=== PATIENT | female | born 1945 | race American Indian/Alaskan Native ===

== ENCOUNTER 2021-05-07 12:33 | Inpatient (IN) | payer MEDICARE ==
--- NOTE | 2021-05-07 15:19 | Emergency Department Report ---
ED Fall HPI - General Chief Complaint: Hyperglycemia Stated Complaint: FALL, HIGH BLOOD SUGAR Time Seen by Provider: 05/07/21 14:28 Source: patient, EMS Mode of arrival: Stretcher - History of Present Illness Initial Comments: 76-year-old female, history of diabetes, colon cancer, chronic kidney disease, presents to ED following fall at home. Patient states that she has a stool that sits on top of her toilet. Patient states she went to use the bathroom. While sitting on the stool, it fell off of the toilet, and patient reports she also fell, hitting her head and her right arm. She denies any LOC. EMS was called for the fall and found that patient was hyperglycemic when they did Accu-Chek. Patient reports chronic knee pain. States she ambulates with a walker. MD Complaint: fall -: This afternoon Fall From: other (Sitting) Place Fall Occurred: home Loss of Consciousness: none Symptoms Prior to Fall: none Location: head Location - Extremities: Left: Arm Severity: mild Associated Symptoms: denies: chest paint, shortness of breath - Related Data Allergies Allergy/AdvReac Type Severity Reaction Status Date / Time insulin lispro Allergy Unknown Verified 05/07/21 12:39 [From Humalog U-100 Insulin] ED Review of Systems ROS: Stated complaint: HIGH BLOOD SUGAR Other details as noted in HPI Comment: All other systems reviewed and negative Constitutional: denies: fever Respiratory: denies: shortness of breath Cardiovascular: denies: chest pain Gastrointestinal: denies: nausea, vomiting Neurological: headache ED Past Medical Hx - Past Medical History Previous Medical History?: Yes Hx Hypertension: Yes Hx Diabetes: Yes Hx Arthritis: Yes Hx Asthma: Yes Additional medical history: Colon CA ED Physical Exam - General Limitations: No Limitations General appearance: alert, in no apparent distress - Head Head exam: Present: atraumatic, normocephalic - Eye Eye exam: Present: normal appearance, EOMI - ENT ENT exam: Present: mucous membranes moist - Neck Neck exam: Present: normal inspection - Respiratory Respiratory exam: Present: normal lung sounds bilaterally. Absent: respiratory distress - Cardiovascular Cardiovascular Exam: Present: regular rate, normal rhythm - GI/Abdominal GI/Abdominal exam: Present: soft. Absent: distended, tenderness - Extremities Exam Extremities exam: Present: normal inspection, full ROM, other (No tenderness to the right shoulder/upper arm/elbow/forearm/wrist; no deformities noted; range of motion intact) - Neurological Exam Neurological exam: Present: alert, oriented X3 - Psychiatric Psychiatric exam: Present: normal affect, normal mood - Skin Skin exam: Present: warm, dry, intact, normal color ED Course Vital Signs 05/07/21 05/07/21 05/07/21 12:38 14:30 17:42 Temperature 97.8 F Pulse Rate 69 69 85 Respiratory 18 19 19 Rate Blood Pressure 170/55 147/68 141/81 [Right] O2 Sat by Pulse 98 100 99 Oximetry 05/07/21 18:47 Temperature Pulse Rate 64 Respiratory 19 Rate Blood Pressure 135/63 [Right] O2 Sat by Pulse 100 Oximetry - Reevaluation(s) Reevaluation #1: 05/07/21 16:25 Labs show renal insufficiency. Patient states she has a history of kidney problems. States she is not on dialysis. Reports that her food safety auditor wanted her to begin dialysis but pt states that she refused. She states her food safety auditor told her that her renal function had improved since then. Spoke w/ pt's daughter Rachelle. States pt has been living with her in [place], [place]. Came to [place] yesterday to stay w/ her sister, Zulema. Rachelle confirms pt's history of renal insufficiency and her refusal to go on dialysis. States patient's next appt w/ her food safety auditor, Dr De Dios, is in June. However, pt will be living with her sister Zulema, as of yesterday. Rachelle states that pt did not acutally fall off of the toilet today; states that happened in [place] a couple of weeks ago. States pt sometimes gets confused. Rachelle states she spoke w/ her sister, Zulema, who stated that EMS was called b/c she was calling pt's name but pt was not responding to her. Rachelle told Zulema to check her glucose and it was elevated so EMS was called. 05/07/21 16:53 Spoke w/ Zulema Yuri ([phone]), pt's daughter here in [place] who will now be taking care of the patient. She states she picked up pt yesterday from her sistre's house in [place], [place]. She was unaware that pt needed to take insulin last night or this morning. States pt ate dinner last night and also breakfast this morning. She states was getting pt ready for a bath. Pt stated that she needed to use the toilet first. Daughter helped pt onto toilet and pt had a syncopal epidoe and became unresponsive. She called EMS. Upon EMS arrival pt was awake and alert. Accucheck read HIGH. She reports pt has NOT received the COVID-19 vaccine b/c pt did not want to get it. She also reports patient was diagnosed with colon cancer several years ago. Pt denies having any surgery, chemo, or radiation. - Consultations Consultation #1: 05/07/21 17:44 Spoke w/ Dr Gabriel, food safety auditor. He is aware of pt and will consult. ED Medical Decision Making - Lab Data Result diagrams: 05/07/21 14:49 05/07/21 14:49 - EKG Data -: EKG Interpreted by Me EKG shows normal: sinus rhythm, axis, intervals, QRS complexes, ST-T waves Rate: normal - EKG Data Interpretation: no acute changes - Radiology Data Radiology results: report reviewed, image reviewed - Medical Decision Making 76-year-old female, history of diabetes, colon cancer, chronic kidney disease, presents to ED following syncopal episode. Patient has recently moved to [place] on yesterday, she did not take her insulin yesterday or today. Glucose of 575 here in the ED. Patient does not appear to be in DKA. VBG is normal. No ketones present. Chest x-ray unremarkable. CT head is negative for any acute findings. No neuro deficits on exam. Patient is A&O x3, but does get confused on some details at times. EKG shows no ST changes. BUN and creatinine are quite elevated at 107 and 3.2. Potassium is 5.0. Bicarbonate 17. Patient states she was previously told by her food safety auditor in [place], [place] that she would need to go on dialysis, which patient refused, but states her food safety auditor has since told her that her kidney function has somewhat improved. She is unsure of her baseline creatnine. Urinalysis is unremarkable. Since patient is new to [place], she has no physicians here in town. I spoke with food safety auditor on-call, Dr. Gabriel, who agrees to see the patient. Patient will be admitted to hospitalist, Dr. Garcia, for further management. - Differential Diagnosis arrythmia, infection, intracranial abnormality Critical care attestation.: If time is entered above; I have spent that time in minutes in the direct care of this critically ill patient, excluding procedure time. ED Disposition Clinical Impression: Syncope, Hyperglycemia, Acute on chronic renal failure Disposition: OP ADMIT IP TO THIS HOSP Is pt being admited?: Yes Condition: Stable Time of Disposition: 17:19
[2021-05-07 15:31] LABS: Calcium 8.5 mg/dL (8.4-10.2)
[2021-05-07 15:54] LABS: Bacteria,Urine 1+ /HPF (Negative); Bilirubin,Urine NEG (Negative); Blood,Urine NEG (Negative); Color,Urine Straw (Yellow); Mucus,Urine FEW /HPF; Protein,Urine <15 mg/dL mg/dL (Negative); Urobilinogen,Urine < 2.0 mg/dL (<2.0)
[2021-05-07 15:59] LABS: Hematocrit 25.2 % (30.3-42.9); Hemoglobin 8.1 gm/dl (10.1-14.3); Mean Corpuscular HGB Conc 32 % (30-34); Mean Corpuscular Volume 91 fl (79-97); Platelet Count 263 K/mm3 (140-440); Red Blood Count 2.78 M/mm3 (3.65-5.03); Red Cell Distribution Width 13.9 % (13.2-15.2)
[2021-05-07] MEDS ORDERED: INSULIN REGULAR, HUMAN 100 UNITS/1 ML IV ONE (16:05)
[2021-05-07] MEDS ORDERED: SODIUM CHLORIDE 0.9% 1000 ML 1,000 ML IV ONE (16:06)
--- NOTE | 2021-05-07 17:05 | Cat Scan Report ---
CT head/brain wo con INDICATION / CLINICAL INFORMATION: 76 years Female; fall, injury. TECHNIQUE: Routine CT head without contrast. All CT scans at this location are performed using CT dos e reduction for ALARA by means of automated exposure control. COMPARISON: None available. FINDINGS: BRAIN / INTRACRANIAL CONTENTS: The motion degrades the image quality at. However, there appears be mi ld cerebral white matter disease most consistent with microvascular angiopathy. Is also mild cerebral atrophy. The ventricular system is correspondingly appropriate in size and configuration. There is n o clear CT evidence of acute intracranial hemorrhage or significant mass effect. ORBITS: No significant abnormality of visualized orbits. SINUSES / MASTOIDS: There is minimal mucosal thickening along the posterior left sphenoid sinus. CRANIOCERVICAL JUNCTION: No significant abnormality. ADDITIONAL FINDINGS: None. IMPRESSION: 1. The motion degrades image quality. However, there is mild microvascular angiopathy without clear C T ends of acute intracranial hemorrhage. Signer Name: Rubén Bustos MD Signed: 05/07/2021 5:01 PM Workstation Name: [id number]
[2021-05-07 17:07] LABS: RBC Morphology Normal; Total Cells Counted 100
--- NOTE | 2021-05-07 17:20 | XRay Report ---
CHEST 1 VIEW INDICATION / CLINICAL INFORMATION: syncope. COMPARISON: None available. FINDINGS: SUPPORT DEVICES: None. HEART / MEDIASTINUM: No significant abnormality. LUNGS / PLEURA: No significant pulmonary or pleural abnormality. No pneumothorax. ADDITIONAL FINDINGS: No significant additional findings. IMPRESSION: 1. No acute findings. Signer Name: Jitendra Ventuar MD Signed: 05/07/2021 5:15 PM Workstation Name: [id number]
[2021-05-07] MEDS ORDERED: HYDROmorphone 1 MG/1 ML INJ IV PRN (22:00)
[2021-05-07] MEDS ORDERED: ACETAMINOPHEN 325 MG TAB PO PRN (22:00)
[2021-05-07] MEDS ORDERED: ONDANSETRON 4 MG/2 ML INJ IV PRN (22:00)
[2021-05-07] MEDS ORDERED: METOCLOPRAMIDE 10 MG/2 ML INJ IV PRN ×2 (22:00→23:05)
[2021-05-08 06:16] LABS: Albumin 3.2 g/dL (3.9-5)
[2021-05-08 07:04] LABS: Hematocrit 26.3 % (30.3-42.9); Hemoglobin 8.7 gm/dl (10.1-14.3); Mean Corpuscular HGB Conc 33 % (30-34); Mean Corpuscular Volume 88 fl (79-97); Platelet Count 285 K/mm3 (140-440); Red Blood Count 2.98 M/mm3 (3.65-5.03); Red Cell Distribution Width 13.4 % (13.2-15.2)
[2021-05-08] MEDS ORDERED: INSULIN LISPRO 100 UNIT/ML SUB-Q SCH (07:30)
[2021-05-08] MEDS: FAMOTIDINE 20 MG/2 ML INJ IV SCH ×2 (07:35→10:12)
[2021-05-08] MEDS: HEPARIN 5,000 UNIT/1 ML VIAL SUB-Q SCH ×3 (07:35→23:44)
--- NOTE | 2021-05-08 08:01 | History and Physical Report ---
History of Present Illness Date of examination: 05/07/21 Date of admission: 05/07/21 17:25 Chief complaint: Fall at home History of present illness: 76-year-old female, history of diabetes, colon cancer, chronic kidney disease, presents to ED following fall at home. Patient states that she has a stool that sits on top of her toilet. Patient states she went to use the bathroom. While sitting on the stool, it fell off of the toilet, and patient reports she also fell, hitting her head and her right arm. She denies any LOC. EMS was called for the fall and found that patient was hyperglycemic when they did Accu-Chek. Patient reports chronic knee pain. States she ambulates with a walker. Complaint: fall -: This afternoon Fall From: other (Sitting) Place Fall Occurred: home Loss of Consciousness: none Symptoms Prior to Fall: none Location: head Location - Extremities: Left: Arm Severity: mild Associated Symptoms: denies: chest paint, shortness of breath - Related Data Allergies Allergy/AdvReac Type Severity Reaction Status Date / Time insulin lispro Allergy Unknown Verified 05/07/21 12:39 [From Humalog U-100 Insulin] - Past Medical History Previous Medical History?: Yes Hx Hypertension: Yes Hx Diabetes: Yes Hx Arthritis: Yes Hx Asthma: Yes Additional medical history: Colon CA Review of Systems ROS: Stated complaint: HIGH BLOOD SUGAR Other details as noted in HPI Comment: All other systems reviewed and negative Constitutional: denies: fever Respiratory: denies: shortness of breath Cardiovascular: denies: chest pain Gastrointestinal: denies: nausea, vomiting Neurological: headache Medications and Allergies Allergies Allergy/AdvReac Type Severity Reaction Status Date / Time insulin lispro Allergy Unknown Verified 05/07/21 12:39 [From Humalog U-100 Insulin] Home Medications Medication Instructions Recorded Confirmed Last Taken Type Unobtainable 05/10/21 05/10/21 Unknown History Active Meds: Active Medications Acetaminophen (Acetaminophen 325 Mg Tab) 650 mg PO Q4H PRN PRN Reason: Pain MILD(1-3)/Fever >100.5/CHAPMAN Famotidine (Famotidine 20 Mg/2 Ml Inj) 10 mg IV BID [facility] Last Admin: 05/08/21 07:35 Dose: Not Given Documented by: Heparin Sodium (Porcine) (Heparin 5,000 Unit/1 Ml Vial) 5,000 unit SUB-Q Q12HR [facility] Last Admin: 05/08/21 07:35 Dose: Not Given Documented by: Hydromorphone HCl (Hydromorphone 1 Mg/1 Ml Inj) 0.5 mg IV Q3H PRN PRN Reason: Pain , Severe (7-10) Insulin Human Regular (Insulin Regular, Human 100 Units/1 Ml) 0 units SUB-Q ACHS [facility]; Protocol Metoclopramide HCl (Metoclopramide 10 Mg/2 Ml Inj) 5 mg IV Q6H PRN PRN Reason: Nausea And Vomiting Ondansetron HCl (Ondansetron 4 Mg/2 Ml Inj) 4 mg IV Q3H PRN PRN Reason: Nausea And Vomiting Oxycodone/Acetaminophen (Oxycodone /Acetaminophen 5-325mg Tab) 1 tab PO Q6H PRN PRN Reason: Pain, Moderate (4-6) Sodium Chloride (Sodium Chloride 0.9% 10 Ml Flush Syringe) 10 ml IV BID [facility] Last Admin: 05/08/21 07:36 Dose: Not Given Documented by: Sodium Chloride (Sodium Chloride 0.9% 10 Ml Flush Syringe) 10 ml IV PRN PRN PRN Reason: LINE FLUSH Exam - Constitutional Vitals: Temp Pulse Resp BP Pulse Ox 97.8 F 56 L 18 169/60 98 05/08/21 00:10 05/08/21 00:10 05/08/21 00:10 05/08/21 00:10 05/08/21 00:10 General appearance: Present: no acute distress, well-nourished - EENT Eyes: Present: PERRL ENT: hearing intact, clear oral mucosa - Neck Neck: Present: supple, normal ROM - Respiratory Respiratory effort: normal Respiratory: bilateral: CTA - Cardiovascular Heart Sounds: Present: S1 & S2. Absent: rub, click - Extremities Extremities: pulses symmetrical, No edema Peripheral Pulses: within normal limits - Abdominal General gastrointestinal: Present: soft, non-tender, non-distended, normal bowel sounds Female genitourinary: Present: normal - Integumentary Integumentary: Present: clear, warm, dry - Musculoskeletal Musculoskeletal: gait normal, strength equal bilaterally - Psychiatric Psychiatric: appropriate mood/affect, intact judgment & insight - Neurologic Neurologic: CNII-XII intact, moves all extremities Results - Labs CBC & Chem 7: 05/08/21 04:52 05/09/21 15:28 Labs: Laboratory Last Values WBC 11.3 K/mm3 (4.5-11.0) H 05/08/21 04:52 RBC 2.98 M/mm3 (3.65-5.03) L 05/08/21 04:52 Hgb 8.7 gm/dl (10.1-14.3) L 05/08/21 04:52 Hct 26.3 % (30.3-42.9) L 05/08/21 04:52 MCV 88 fl (79-97) 05/08/21 04:52 MCH 29 pg (28-32) 05/08/21 04:52 MCHC 33 % (30-34) 05/08/21 04:52 RDW 13.4 % (13.2-15.2) 05/08/21 04:52 Plt Count 285 K/mm3 (140-440) 05/08/21 04:52 Add Manual Diff Complete 05/07/21 14:49 Total Counted 100 05/07/21 14:49 Seg Neutrophils % Sales Account Associate 05/07/21 14:49 Seg Neuts % (Manual) 91.0 % (40.0-70.0) H 05/07/21 14:49 Lymphocytes % (Manual) 4.0 % (13.4-35.0) L 05/07/21 14:49 Monocytes % (Manual) 5.0 % (0.0-7.3) 05/07/21 14:49 Nucleated RBC % Not Reportable 05/07/21 14:49 Seg Neutrophils # Man 8.9 K/mm3 (1.8-7.7) H 05/07/21 14:49 Band Neutrophils # 0.0 K/mm3 05/07/21 14:49 Lymphocytes # (Manual) 0.4 K/mm3 (1.2-5.4) L 05/07/21 14:49 Abs React Lymphs (Man) 0.0 K/mm3 05/07/21 14:49 Monocytes # (Manual) 0.5 K/mm3 (0.0-0.8) 05/07/21 14:49 Eosinophils # (Manual) 0.0 K/mm3 (0.0-0.4) 05/07/21 14:49 Basophils # (Manual) 0.0 K/mm3 (0.0-0.1) 05/07/21 14:49 Metamyelocytes # 0.0 K/mm3 05/07/21 14:49 Myelocytes # 0.0 K/mm3 05/07/21 14:49 Promyelocytes # 0.0 K/mm3 05/07/21 14:49 Blast Cells # 0.0 K/mm3 05/07/21 14:49 WBC Morphology Not Reportable 05/07/21 14:49 Hypersegmented Neuts Not Reportable 05/07/21 14:49 Hyposegmented Neuts Not Reportable 05/07/21 14:49 Hypogranular Neuts Not Reportable 05/07/21 14:49 Smudge Cells Not Reportable 05/07/21 14:49 Toxic Granulation Not Reportable 05/07/21 14:49 Toxic Vacuolation Not Reportable 05/07/21 14:49 Dohle Bodies Not Reportable 05/07/21 14:49 Pelger-Huet Anomaly Not Reportable 05/07/21 14:49 Aviva Rods Not Reportable 05/07/21 14:49 Platelet Estimate Not Reportable 05/07/21 14:49 Clumped Platelets Not Reportable 05/07/21 14:49 Plt Clumps, EDTA Not Reportable 05/07/21 14:49 Large Platelets Not Reportable 05/07/21 14:49 Giant Platelets Not Reportable 05/07/21 14:49 Platelet Satelliting Not Reportable 05/07/21 14:49 Plt Morphology Comment Not Reportable 05/07/21 14:49 RBC Morphology Normal 05/07/21 14:49 Dimorphic RBCs Not Reportable 05/07/21 14:49 Polychromasia Not Reportable 05/07/21 14:49 Hypochromasia Not Reportable 05/07/21 14:49 Poikilocytosis Not Reportable 05/07/21 14:49 Anisocytosis Not Reportable 05/07/21 14:49 Microcytosis Not Reportable 05/07/21 14:49 Macrocytosis Not Reportable 05/07/21 14:49 Spherocytes Not Reportable 05/07/21 14:49 Pappenheimer Bodies Not Reportable 05/07/21 14:49 Sickle Cells Not Reportable 05/07/21 14:49 Target Cells Not Reportable 05/07/21 14:49 Tear Drop Cells Not Reportable 05/07/21 14:49 Ovalocytes Not Reportable 05/07/21 14:49 Helmet Cells Not Reportable 05/07/21 14:49 [place] Bodies Not Reportable 05/07/21 14:49 [place] Rings Not Reportable 05/07/21 14:49 [place] Cells Not Reportable 05/07/21 14:49 Bite Cells Not Reportable 05/07/21 14:49 Crenated Cell Not Reportable 05/07/21 14:49 Elliptocytes Not Reportable 05/07/21 14:49 Acanthocytes (Spur) Not Reportable 05/07/21 14:49 Rouleaux Not Reportable 05/07/21 14:49 Hemoglobin C Crystals Not Reportable 05/07/21 14:49 Schistocytes Not Reportable 05/07/21 14:49 Malaria parasites Not Reportable 05/07/21 14:49 [place] Bodies Not Reportable 05/07/21 14:49 Hem Pathologist Commnt No 05/07/21 14:49 VBG pH 7.407 (7.320-7.420) 05/07/21 14:49 Sodium 131 mmol/L (137-145) L 05/08/21 04:52 Potassium 4.9 mmol/L (3.6-5.0) 05/08/21 04:52 Chloride 98.3 mmol/L (98-107) 05/08/21 04:52 Carbon Dioxide 20 mmol/L (22-30) L 05/08/21 04:52 Anion Gap 18 mmol/L 05/08/21 04:52 BUN 94 mg/dL (7-17) H 05/08/21 04:52 Creatinine 2.6 mg/dL (0.6-1.2) H 05/08/21 04:52 Estimated GFR 22 ml/min 05/08/21 04:52 BUN/Creatinine Ratio 36 % 05/08/21 04:52 Glucose 152 mg/dL (65-100) H 05/08/21 04:52 POC Glucose 414 mg/dL (70-105) H 05/07/21 17:48 Hemoglobin A1c 9.6 % (4-6) H 05/08/21 04:52 Calcium 9.0 mg/dL (8.4-10.2) 05/08/21 04:52 Total Bilirubin 0.20 mg/dL (0.1-1.2) 05/08/21 04:52 AST 20 units/L (5-40) 05/08/21 04:52 ALT 14 units/L (7-56) 05/08/21 04:52 Alkaline Phosphatase 38 units/L (35-129) 05/08/21 04:52 Total Protein 6.8 g/dL (6.3-8.2) 05/08/21 04:52 Albumin 3.2 g/dL (3.9-5) L 05/08/21 04:52 Albumin/Globulin Ratio 0.9 % 05/08/21 04:52 Urine Color Straw (Yellow) 05/07/21 Unknown Urine Turbidity Clear (Clear) 05/07/21 Unknown Urine pH 5.0 (5.0-7.0) 05/07/21 Unknown Ur Specific [place] 1.010 (1.003-1.030) 05/07/21 Unknown Urine Protein <15 mg/dl mg/dL (Negative) 05/07/21 Unknown Urine Glucose (UA) >=500 mg/dL (Negative) 05/07/21 Unknown Urine Ketones Neg mg/dL (Negative) 05/07/21 Unknown Urine Blood Neg (Negative) 05/07/21 Unknown Urine Nitrite Neg (Negative) 05/07/21 Unknown Urine Bilirubin Neg (Negative) 05/07/21 Unknown Urine Urobilinogen < 2.0 mg/dL (<2.0) 05/07/21 Unknown Ur Leukocyte Esterase Neg (Negative) 05/07/21 Unknown Urine WBC (Auto) 4.0 /HPF (0.0-6.0) 05/07/21 Unknown Urine RBC (Auto) 1.0 /HPF (0.0-6.0) 05/07/21 Unknown U Epithel Cells (Auto) 4.0 /HPF (0-13.0) 05/07/21 Unknown Urine Bacteria (Auto) 1+ /HPF (Negative) 05/07/21 Unknown Urine Mucus Few /HPF 05/07/21 Unknown Assessment and Plan Advance Directives: Yes - Patient Problems (1) IRMA (acute kidney injury) Current Visit: Yes Status: Acute Plan to address problem: IV fluids for now Trend BUN/creatinine Nephrology consult Possible vasomotor nephropathy versus ATN (2) Syncope Current Visit: Yes Status: Acute Plan to address problem: Syncope work-up (3) Fall Current Visit: Yes Status: Acute Qualifiers: Encounter type: initial encounter Qualified Code(s): W19.XXXA - Unspecified fall, initial encounter Plan to address problem: No fractures Patient able to walk (4) DVT prophylaxis Current Visit: Yes Status: Acute Plan to address problem: On heparin and GI prophylaxis
[2021-05-08] MEDS: INSULIN REGULAR, HUMAN 100 UNITS/1 ML SUB-Q SCH ×4 (09:18→23:45)
--- NOTE | 2021-05-08 09:48 | Consultation ---
History of Present Illness - Reason for Consult acute renal failure, chronic renal failure - History of Present Illness elderly female with a past medical history significant for what seems to be baseline chronic kidney disease stage IV/borderline stage V in the setting of hypertension,diabetes who is visiting sister here in the [place] area, who is under the care of a locker attendant back in her home town, presented to the emergency department after a fall that she suffered from her commode. Nephrology consult at this time for further management of her chronic kidney disease with concern for possible acute kidney injury. patient states that she did not syncopized and she did not lose consciousness b ut instead fell from the commode. Past History Past Medical History: diabetes, hypertension, hyperlipidemia Past Surgical History: No surgical history Social history: no significant social history Family history: hypertension Medications and Allergies Allergies Allergy/AdvReac Type Severity Reaction Status Date / Time insulin lispro Allergy Unknown Verified 05/07/21 12:39 [From Humalog U-100 Insulin] Active Meds: Active Medications Acetaminophen (Acetaminophen 325 Mg Tab) 650 mg PO Q4H PRN PRN Reason: Pain MILD(1-3)/Fever >100.5/[place] Famotidine (Famotidine 20 Mg/2 Ml Inj) 10 mg IV BID [facility] Last Admin: 05/08/21 07:35 Dose: Not Given Documented by: Heparin Sodium (Porcine) (Heparin 5,000 Unit/1 Ml Vial) 5,000 unit SUB-Q Q12HR [facility] Last Admin: 05/08/21 07:35 Dose: Not Given Documented by: Hydromorphone HCl (Hydromorphone 1 Mg/1 Ml Inj) 0.5 mg IV Q3H PRN PRN Reason: Pain , Severe (7-10) Insulin Human Regular (Insulin Regular, Human 100 Units/1 Ml) 0 units SUB-Q ACHS [facility]; Protocol Last Admin: 05/08/21 09:18 Dose: Not Given Documented by: Metoclopramide HCl (Metoclopramide 10 Mg/2 Ml Inj) 5 mg IV Q6H PRN PRN Reason: Nausea And Vomiting Ondansetron HCl (Ondansetron 4 Mg/2 Ml Inj) 4 mg IV Q3H PRN PRN Reason: Nausea And Vomiting Oxycodone/Acetaminophen (Oxycodone /Acetaminophen 5-325mg Tab) 1 tab PO Q6H PRN PRN Reason: Pain, Moderate (4-6) Sodium Chloride (Sodium Chloride 0.9% 10 Ml Flush Syringe) 10 ml IV BID [facility] Last Admin: 05/08/21 07:36 Dose: Not Given Documented by: Sodium Chloride (Sodium Chloride 0.9% 10 Ml Flush Syringe) 10 ml IV PRN PRN PRN Reason: LINE FLUSH Review of Systems Constitutional: fatigue, weakness Exam - Vital Signs Vital signs: Vital Signs Temp Pulse Resp BP Pulse Ox 97.8 F 69 18 170/55 98 05/07/21 12:38 05/07/21 12:38 05/07/21 12:38 05/07/21 12:38 05/07/21 12:38 - General Appearance General appearance: well-developed, well-nourished, appears stated age EENT: ATNC, PERRL Neck: Present: neck supple, trachea midline Respiratory: Clear to Ascultation, Normal Exam Heart: regular Gastrointestinal: Present: normal Integumentary: warm and dry Neurologic: no focal deficit Musculoskeletal: Present: deferred Psychiatric: cooperative Results - Lab Results 05/08/21 04:52 05/08/21 04:52 Most recent lab results Calcium 9.0 mg/dL (8.4-10.2) 05/08/21 04:52 Assessment and Plan - Patient Problems (1) Acute on chronic renal failure Current Visit: Yes Status: Acute Plan to address problem: after gentle IV fluid hydration it seems that her renal function has been showing improvement. These avoid nephrotoxins. We will continue to follow up. No acute indications for renal replacement therapy at this time. She likely has underlying chronic kidney disease stage IV and she is under the care of her locker attendant back home. (2) Hypertensive chronic kidney disease with stage 1 through stage 4 chronic kidney disease, or unspecified chronic kidney disease Current Visit: Yes Status: Chronic Plan to address problem: monitor blood pressures under current regimen. (3) Type 2 diabetes mellitus with diabetic chronic kidney disease Current Visit: Yes Status: Chronic Plan to address problem: diabetes management per primary attending. (4) Syncope Current Visit: Yes Status: Acute Plan to address problem: patient clarified with me that she did not syncopized and she did not lose consciousness. She instead had what seems to be a mechanical fall from her toilet seat patient had carotid ultrasound done and we are pending official reading at this time.
[2021-05-08 15:17] LABS: Band Neutrophils # (Manual) 0.1 K/mm3; Promyelocytes # (Manual) 37.5 K/mm3; Total Cells Counted 100
[2021-05-08 15:18] LABS: Hypochromasia 1+; Platelet Estimate Consistent w Auto
--- NOTE | 2021-05-08 16:55 | Progress Note ---
Objective - Constitutional Vitals: Vital Signs - 12hr 05/08/21 05/08/21 08:13 13:07 Temperature 98.0 F 97.8 F Pulse Rate 55 L 62 Respiratory 18 20 Rate Blood Pressure 164/60 156/58 O2 Sat by Pulse 100 100 Oximetry - Labs CBC & Chem 7: 05/08/21 04:52 05/08/21 04:52 Labs: Abnormal lab results 05/07/21 05/07/21 05/08/21 Range/Units 14:49 17:48 04:52 WBC 11.3 H (4.5-11.0) K/mm3 RBC 2.98 L (3.65-5.03) M/mm3 Hgb 8.7 L (10.1-14.3) gm/dl Hct 26.3 L (30.3-42.9) % Seg Neuts % (Manual) 91.0 H 91.0 H (40.0-70.0) % Lymphocytes % (Manual) 4.0 L 3.0 L (13.4-35.0) % Seg Neutrophils # Man 8.9 H 10.3 H (1.8-7.7) K/mm3 Lymphocytes # (Manual) 0.4 L 0.3 L (1.2-5.4) K/mm3 Sodium (137-145) mmol/L Carbon Dioxide (22-30) mmol/L BUN (7-17) mg/dL Creatinine (0.6-1.2) mg/dL Glucose (65-100) mg/dL POC Glucose 414 H (70-105) mg/dL Hemoglobin A1c (4-6) % Albumin (3.9-5) g/dL 05/08/21 05/08/21 05/08/21 Range/Units 04:52 04:52 13:16 WBC (4.5-11.0) K/mm3 RBC (3.65-5.03) M/mm3 Hgb (10.1-14.3) gm/dl Hct (30.3-42.9) % Seg Neuts % (Manual) (40.0-70.0) % Lymphocytes % (Manual) (13.4-35.0) % Seg Neutrophils # Man (1.8-7.7) K/mm3 Lymphocytes # (Manual) (1.2-5.4) K/mm3 Sodium 131 L (137-145) mmol/L Carbon Dioxide 20 L (22-30) mmol/L BUN 94 H (7-17) mg/dL Creatinine 2.6 H (0.6-1.2) mg/dL Glucose 152 H (65-100) mg/dL POC Glucose 291 H (70-105) mg/dL Hemoglobin A1c 9.6 H (4-6) % Albumin 3.2 L (3.9-5) g/dL 05/08/21 Range/Units 16:06 WBC (4.5-11.0) K/mm3 RBC (3.65-5.03) M/mm3 Hgb (10.1-14.3) gm/dl Hct (30.3-42.9) % Seg Neuts % (Manual) (40.0-70.0) % Lymphocytes % (Manual) (13.4-35.0) % Seg Neutrophils # Man (1.8-7.7) K/mm3 Lymphocytes # (Manual) (1.2-5.4) K/mm3 Sodium (137-145) mmol/L Carbon Dioxide (22-30) mmol/L BUN (7-17) mg/dL Creatinine (0.6-1.2) mg/dL Glucose (65-100) mg/dL POC Glucose 272 H (70-105) mg/dL Hemoglobin A1c (4-6) % Albumin (3.9-5) g/dL
--- NOTE | 2021-05-08 17:30 | Vascular Lab Report ---
DUPLEX DOPPLER ULTRASOUND CAROTID, BILATERAL INDICATION / CLINICAL INFORMATION: syncope. COMPARISON: None available. FINDINGS: RIGHT CAROTID: - PLAQUE ESTIMATE (%): < 50% - CCA velocity: 48 cm/sec. - ICA peak systolic velocity: 118 cm/sec. - ICA/CCA PSV Ratio: 2.5 Right Vertebral Artery: Antegrade flow. LEFT CAROTID: - PLAQUE ESTIMATE (%): < 50% - CCA velocity: 50 cm/sec. - ICA peak systolic velocity: 85 cm/sec. - ICA/CCA PSV Ratio: 1.7 Left Vertebral Artery: Antegrade flow. IMPRESSION: 1. Right Internal Carotid Artery: Less than 50% diameter stenosis. 2. Left Internal Carotid Artery: Less than 50% diameter stenosis. Velocity criteria are extrapolated from diameter data as defined by the Society of Radiologists in Ul trasound Consensus Conference, Radiology 2003; 229;340-346. NO STENOSIS (NORMAL) - Plaque = none; ICA PSV < 125 cm/sec; ICA/CCA PSV Ratio < 2.0 <50% STENOSIS - Plaque < 50%; ICA PSV < 125 cm/sec; ICA/CCA PSV Ratio < 2.0 50-69% STENOSIS - Plaque > 50%; ICA PSV = 125-230 cm/sec; ICA/CCA PSV Ratio = 2.0-4.0 >70% BUT <100% STENOSIS - Plaque > 50%; ICA PSV > 230 cm/sec; ICA/CCA PSV Ratio > 4.0 NEAR OCCLUSION - Plaque = visible lumen; ICA PSV = high/low/none; ICA/CCA PSV Ratio = variable TOTAL OCCLUSION - Plaque = no lumen; ICA PSV = none; ICA/CCA PSV Ratio = N/A Signer Name: Jacob Medel MD Signed: 05/08/2021 5:25 PM Workstation Name: [email or web address]
--- NOTE | 2021-05-08 18:08 | Electrocardiograph Report ---
[facility] Test Date: 2021-05-07 Test Time: 17:17:23 Pat Name: JUAN MANUEL CHUNG Department: Room: A483 1 Gender: F Systems Security Analyst: [id number] : 1945 Requested By: NEELIMA VALENZUELA Order Number: [id number] Reading MD: Joby Sanchez Measurements Intervals [place] Rate: 62 P: 77 [place]: 226 QRS: 58 QRSD: 106 T: 44 QT: 388 QTc: 394 Interpretive Statements Sinus rhythm Prolonged [place] interval No previous ECG available for comparison Electronically Signed On 05-08-2021 18:07:59 EDT by Joby Sanchez
[2021-05-08] MEDS: oxyCODONE /ACETAMINOPHEN 5-325MG TAB PO PRN (23:44)
[2021-05-09] MEDS: oxyCODONE /ACETAMINOPHEN 5-325MG TAB PO PRN ×2 (07:41→23:58)
--- NOTE | 2021-05-09 09:32 | Progress Note ---
Assessment and Plan - Patient Problems (1) IRMA (acute kidney injury) Current Visit: Yes Status: Acute Plan to address problem: IV fluids for now Trend BUN/creatinine Nephrology consult Possible vasomotor nephropathy versus ATN (2) Syncope Current Visit: Yes Status: Acute Plan to address problem: Syncope work-up (3) DVT prophylaxis Current Visit: Yes Status: Acute Plan to address problem: On heparin and GI prophylaxis Subjective Date of service: 05/09/21 Principal diagnosis: Acute kidney injury Interval history: 76-year-old female, history of diabetes, colon cancer, chronic kidney disease, presents to ED following fall at home. Patient states that she has a stool that sits on top of her toilet. Patient states she went to use the bathroom. While sitting on the stool, it fell off of the toilet, and patient reports she also fell, hitting her head and her right arm. She denies any LOC. EMS was called for the fall and found that patient was hyperglycemic when they did Accu-Chek. Patient reports chronic knee pain. States she ambulates with a walker. Day #2 Creatinine improving Continue IV fluids Physical therapy Objective - Constitutional Vitals: Vital Signs - 12hr 05/08/21 05/08/21 05/08/21 21:46 22:00 23:46 Temperature 98.0 F 98.1 F Pulse Rate 55 L 58 L Respiratory 20 20 Rate Blood Pressure 170/56 158/58 O2 Sat by Pulse 100 Oximetry 05/09/21 05/09/21 00:09 07:41 Temperature Pulse Rate Respiratory 20 Rate Blood Pressure O2 Sat by Pulse 100 Oximetry General appearance: Present: no acute distress, well-nourished - EENT Eyes: PERRL, EOM intact ENT: hearing intact, clear oral mucosa Ears: bilateral: normal - Neck Neck: supple, normal ROM - Respiratory Respiratory effort: normal Respiratory: bilateral: CTA - Breasts Breasts: normal - Cardiovascular Heart rate: 78 Rhythm: regular Heart Sounds: Present: S1 & S2. Absent: gallop, rub Extremities: pulses intact, No edema, normal color, Full ROM - Gastrointestinal General gastrointestinal: Present: soft, non-tender, non-distended, normal bowel sounds - Genitourinary Female genitourinary: normal - Integumentary Integumentary: clear, warm, dry - Musculoskeletal Musculoskeletal: 1, strength equal bilaterally - Neurologic Neurologic: moves all extremities - Psychiatric Psychiatric: memory intact, appropriate mood/affect, intact judgment & insight - Labs CBC & Chem 7: 05/08/21 04:52 05/09/21 15:28 Labs: Abnormal lab results 05/08/21 05/08/21 05/08/21 Range/Units 04:52 13:16 16:06 Seg Neuts % (Manual) 91.0 H (40.0-70.0) % Lymphocytes % (Manual) 3.0 L (13.4-35.0) % Seg Neutrophils # Man 10.3 H (1.8-7.7) K/mm3 Lymphocytes # (Manual) 0.3 L (1.2-5.4) K/mm3 POC Glucose 291 H 272 H (70-105) mg/dL 05/08/21 05/09/21 Range/Units 22:30 08:15 Seg Neuts % (Manual) (40.0-70.0) % Lymphocytes % (Manual) (13.4-35.0) % Seg Neutrophils # Man (1.8-7.7) K/mm3 Lymphocytes # (Manual) (1.2-5.4) K/mm3 POC Glucose 278 H 66 L (70-105) mg/dL
[2021-05-09] MEDS: INSULIN REGULAR, HUMAN 100 UNITS/1 ML SUB-Q SCH ×4 (10:19→23:57)
[2021-05-09] MEDS: FAMOTIDINE 20 MG TAB PO SCH (10:39)
[2021-05-09] MEDS: HEPARIN 5,000 UNIT/1 ML VIAL SUB-Q SCH ×2 (10:40→23:56)
--- NOTE | 2021-05-09 11:43 | Progress Note ---
Assessment and Plan - Patient Problems (1) Acute on chronic renal failure Current Visit: Yes Status: Acute Plan to address problem: after gentle IV fluid hydration it seems that her renal function has been showing improvement. Please avoid nephrotoxins. We will continue to follow up. No acute indications for renal replacement therapy at this time. She likely has underlying chronic kidney disease stage IV and she is under the care of her utility lineman back home. Labs are pending this am. (2) Hypertensive chronic kidney disease with stage 1 through stage 4 chronic kidney disease, or unspecified chronic kidney disease Current Visit: Yes Status: Chronic Plan to address problem: monitor blood pressures under current regimen. (3) Type 2 diabetes mellitus with diabetic chronic kidney disease Current Visit: Yes Status: Chronic Plan to address problem: diabetes management per primary attending. (4) Syncope Current Visit: Yes Status: Acute Plan to address problem: patient clarified with me that she did not syncopized and she did not lose consciousness. She instead had what seems to be a mechanical fall from her toilet seat patient had carotid ultrasound done and we are pending official reading at this time. Subjective Date of service: 05/09/21 Interval history: No acute changes today. Labs pending. Objective - Vital Signs Vital signs: Vital Signs - 12hr 05/08/21 05/09/21 05/09/21 23:46 00:09 07:41 Temperature 98.1 F Pulse Rate 58 L Respiratory 20 20 Rate Blood Pressure 158/58 O2 Sat by Pulse 100 100 Oximetry 05/09/21 08:03 Temperature Pulse Rate 58 L Respiratory Rate Blood Pressure O2 Sat by Pulse Oximetry - General Appearance General appearance: appears stated age EENT: ATNC Neck: no JVD Respiratory: Present: Clear to Ascultation Cardiology: regular Gastrointestinal: normal Integumentary: no rash Neurologic: no focal deficit Musculoskeletal: deferred Psychiatric: cooperative - Lab 05/08/21 04:52 05/08/21 04:52 Most recent lab results Calcium 9.0 mg/dL (8.4-10.2) 05/08/21 04:52 - Allied health notes Allied health notes reviewed: nursing Medications & Allergies - Medications Allergies/Adverse Reactions: Allergies insulin lispro [From Humalog U-100 Insulin] Allergy (Verified 05/07/21 12:39) Unknown Active Medications: Generic Name Dose Route Start Last Admin Trade Name Freq PRN Reason Stop Dose Admin Acetaminophen 650 mg 05/07/21 22:00 Acetaminophen 325 Mg Tab PO Q4H PRN Pain MILD(1-3)/Fever >100.5/CHAPMAN Famotidine 20 mg 05/09/21 10:00 05/09/21 10:39 Famotidine 20 Mg Tab PO 20 mg DAILY ALISIA Administration Heparin Sodium (Porcine) 5,000 unit 05/07/21 22:00 05/09/21 10:40 Heparin 5,000 Unit/1 Ml Vial SUB-Q 5,000 unit Q12HR ALISIA Administration Hydromorphone HCl 0.5 mg 05/07/21 22:00 Hydromorphone 1 Mg/1 Ml Inj IV Q3H PRN Pain , Severe (7-10) Insulin Human Regular 0 units 05/08/21 07:30 05/09/21 10:19 Insulin Regular, Human 100 Units/1 Ml SUB-Q Not Given ACHS [facility] Protocol Metoclopramide HCl 5 mg 05/07/21 23:05 Metoclopramide 10 Mg/2 Ml Inj IV Q6H PRN Nausea And Vomiting Ondansetron HCl 4 mg 05/07/21 22:00 Ondansetron 4 Mg/2 Ml Inj IV Q3H PRN Nausea And Vomiting Oxycodone/Acetaminophen 1 tab 05/07/21 22:00 05/09/21 07:41 Oxycodone /Acetaminophen 5-325mg Tab PO 1 tab Q6H PRN Administration Pain, Moderate (4-6) Sodium Chloride 10 ml 05/07/21 22:00 05/09/21 10:40 Sodium Chloride 0.9% 10 Ml Flush Syringe IV 10 ml BID ALISIA Administration Sodium Chloride 10 ml 05/07/21 22:00 Sodium Chloride 0.9% 10 Ml Flush Syringe IV PRN PRN LINE FLUSH
[2021-05-10] MEDS: HEPARIN 5,000 UNIT/1 ML VIAL SUB-Q SCH ×2 (10:36→21:09)
[2021-05-10] MEDS: INSULIN REGULAR, HUMAN 100 UNITS/1 ML SUB-Q SCH ×4 (10:36→23:31)
[2021-05-10] MEDS: FAMOTIDINE 20 MG TAB PO SCH (10:36)
[2021-05-10] MEDS: SODIUM CHLORIDE 0.9% 1000 ML 1,000 ML IV SCH ×2 (14:44→21:11)
--- NOTE | 2021-05-10 19:09 | Progress Note ---
Assessment and Plan - Patient Problems (1) Acute on chronic renal failure Current Visit: Yes Status: Acute Plan to address problem: after gentle IV fluid hydration it seems that her renal function has been showing improvement. Please avoid nephrotoxins. We will continue to follow up. No acute indications for renal replacement therapy at this time. She likely has underlying chronic kidney disease stage IV and she is under the care of her candy maker back home. No new labs this am. (2) Hypertensive chronic kidney disease with stage 1 through stage 4 chronic kidney disease, or unspecified chronic kidney disease Current Visit: Yes Status: Chronic Plan to address problem: monitor blood pressures under current regimen. (3) Type 2 diabetes mellitus with diabetic chronic kidney disease Current Visit: Yes Status: Chronic Plan to address problem: diabetes management per primary attending. (4) Syncope Current Visit: Yes Status: Acute Plan to address problem: patient clarified with me that she did not syncopized and she did not lose consciousness. She instead had what seems to be a mechanical fall from her toilet seat patient had carotid ultrasound done with less than 50% diameter stenosis noted in both left/right carotids. Subjective Date of service: 05/10/21 Interval history: No acute issues or changes overnight. No new labs this am. Objective - Vital Signs Vital signs: Vital Signs - 12hr 05/10/21 05/10/21 05/10/21 08:25 11:25 14:00 Temperature 98.4 F 98.4 F Pulse Rate 60 68 Respiratory 18 18 Rate Blood Pressure 163/60 146/59 O2 Sat by Pulse 99 100 96 Oximetry 05/10/21 15:53 Temperature 98.4 F Pulse Rate 59 L Respiratory 18 Rate Blood Pressure 171/56 O2 Sat by Pulse 98 Oximetry - General Appearance General appearance: well-nourished, appears stated age EENT: ATNC Neck: no JVD Respiratory: Present: Clear to Ascultation Cardiology: regular, S1S2 Gastrointestinal: normal, normoactive bowel sounds Integumentary: warm and dry Neurologic: alert and oriented x3 Musculoskeletal: deferred Psychiatric: cooperative - Lab 05/08/21 04:52 05/09/21 15:28 Most recent lab results Calcium 9.0 mg/dL (8.4-10.2) 05/09/21 15:28 Medications & Allergies - Medications Allergies/Adverse Reactions: Allergies insulin lispro [From Humalog U-100 Insulin] Allergy (Verified 05/07/21 12:39) Unknown Home Medications: Home Medications Medication Instructions Recorded Confirmed Last Taken Type Unobtainable 05/10/21 05/10/21 Unknown History Active Medications: Generic Name Dose Route Start Last Admin Trade Name Freq PRN Reason Stop Dose Admin Acetaminophen 650 mg 05/07/21 22:00 Acetaminophen 325 Mg Tab PO Q4H PRN Pain MILD(1-3)/Fever >100.5/CHAPMAN Famotidine 20 mg 05/09/21 10:00 05/10/21 10:36 Famotidine 20 Mg Tab PO 20 mg DAILY ALISIA Administration Heparin Sodium (Porcine) 5,000 unit 05/07/21 22:00 05/10/21 10:36 Heparin 5,000 Unit/1 Ml Vial SUB-Q 5,000 unit Q12HR ALISIA Administration Hydromorphone HCl 0.5 mg 05/07/21 22:00 Hydromorphone 1 Mg/1 Ml Inj IV Q3H PRN Pain , Severe (7-10) Sodium Chloride 1,000 mls @ 125 mls/hr 05/10/21 14:30 05/10/21 14:44 Nacl 0.9% 1000 Ml IV 125 mls/hr DIRECT ALISIA Administration Insulin Human Regular 0 units 05/08/21 07:30 05/10/21 17:44 Insulin Regular, Human 100 Units/1 Ml SUB-Q 3 units ACHS ALISIA Administration Protocol Metoclopramide HCl 5 mg 05/07/21 23:05 Metoclopramide 10 Mg/2 Ml Inj IV Q6H PRN Nausea And Vomiting Ondansetron HCl 4 mg 05/07/21 22:00 Ondansetron 4 Mg/2 Ml Inj IV Q3H PRN Nausea And Vomiting Oxycodone/Acetaminophen 1 tab 05/07/21 22:00 05/09/21 23:58 Oxycodone /Acetaminophen 5-325mg Tab PO 1 tab Q6H PRN Administration Pain, Moderate (4-6) Sodium Chloride 10 ml 05/07/21 22:00 05/10/21 10:36 Sodium Chloride 0.9% 10 Ml Flush Syringe IV 10 ml BID ALISIA Administration Sodium Chloride 10 ml 05/07/21 22:00 Sodium Chloride 0.9% 10 Ml Flush Syringe IV PRN PRN LINE FLUSH
[2021-05-10] MEDS: oxyCODONE /ACETAMINOPHEN 5-325MG TAB PO PRN (21:09)
--- NOTE | 2021-05-11 07:53 | Progress Note ---
Assessment and Plan - Patient Problems (1) IRMA (acute kidney injury) Current Visit: Yes Status: Acute Plan to address problem: IV fluids for now Trend BUN/creatinine Nephrology consult Possible vasomotor nephropathy versus ATN (2) Syncope Current Visit: Yes Status: Acute Plan to address problem: Syncope work-up (3) T2DM (type 2 diabetes mellitus) Current Visit: Yes Status: Chronic Qualifiers: Diabetes mellitus termite helper insulin use: unspecified senior care insulin use status Plan to address problem: Coverage for now (4) DVT prophylaxis Current Visit: Yes Status: Acute Plan to address problem: On heparin and GI prophylaxis Subjective Date of service: 05/10/21 Principal diagnosis: Acute kidney injury Interval history: 76-year-old female, history of diabetes, colon cancer, chronic kidney disease, presents to ED following fall at home. Patient states that she has a stool that sits on top of her toilet. Patient states she went to use the bathroom. While sitting on the stool, it fell off of the toilet, and patient reports she also fell, hitting her head and her right arm. She denies any LOC. EMS was called for the fall and found that patient was hyperglycemic when they did Accu-Chek. Patient reports chronic knee pain. States she ambulates with a walker. Day #2 Creatinine improving Continue IV fluids Physical therapy Day #3 Creatinine improving Bun/cr 107/3.2 to 79/2.4 Objective - Constitutional Vitals: Vital Signs - 12hr 05/10/21 05/10/21 05/10/21 19:59 22:58 23:46 Temperature 99.5 F 98.2 F Pulse Rate 63 60 Respiratory 18 19 Rate Blood Pressure 169/53 170/56 O2 Sat by Pulse 100 99 97 Oximetry General appearance: Present: no acute distress, well-nourished - EENT Eyes: PERRL, EOM intact ENT: hearing intact, clear oral mucosa Ears: bilateral: normal - Neck Neck: supple, normal ROM - Respiratory Respiratory effort: normal Respiratory: bilateral: CTA - Breasts Breasts: normal - Cardiovascular Heart rate: 78 Rhythm: regular Heart Sounds: Present: S1 & S2. Absent: gallop, rub Extremities: pulses intact, No edema, normal color, Full ROM - Gastrointestinal General gastrointestinal: Present: soft, non-tender, non-distended, normal bowel sounds - Genitourinary Female genitourinary: normal - Integumentary Integumentary: clear, warm, dry - Musculoskeletal Musculoskeletal: 1, strength equal bilaterally - Neurologic Neurologic: moves all extremities - Psychiatric Psychiatric: memory intact, appropriate mood/affect, intact judgment & insight - Labs CBC & Chem 7: 05/08/21 04:52 05/09/21 15:28 Labs: Abnormal lab results 05/10/21 05/10/21 05/10/21 Range/Units 11:22 15:50 22:38 POC Glucose 254 H 267 H 191 H (70-105) mg/dL
[2021-05-11] MEDS: INSULIN REGULAR, HUMAN 100 UNITS/1 ML SUB-Q SCH ×4 (08:45→21:55)
--- NOTE | 2021-05-11 09:21 | Progress Note ---
Assessment and Plan - Patient Problems (1) Acute on chronic renal failure Current Visit: Yes Status: Acute Plan to address problem: after gentle IV fluid hydration it seems that her renal function has been showing improvement. Please avoid nephrotoxins. We will continue to follow up. No acute indications for renal replacement therapy at this time. She likely has underlying chronic kidney disease stage IV and she is under the care of her campus recruiting intern back home. No new labs this am. Pending labs and from nephrology standpoint, if renal function remains stable/continues to show improvement, then she is stable for DC with instructions to follow up with her outpatient campus recruiting intern ~1-2 weeks post discharge. (2) Hypertensive chronic kidney disease with stage 1 through stage 4 chronic kidney disease, or unspecified chronic kidney disease Current Visit: Yes Status: Chronic Plan to address problem: monitor blood pressures under current regimen. (3) Type 2 diabetes mellitus with diabetic chronic kidney disease Current Visit: Yes Status: Chronic Plan to address problem: diabetes management per primary attending. (4) Syncope Current Visit: Yes Status: Acute Plan to address problem: patient clarified with me that she did not syncopized and she did not lose consciousness. She instead had what seems to be a mechanical fall from her toilet seat patient had carotid ultrasound done with less than 50% diameter stenosis noted in both left/right carotids. Subjective Date of service: 05/11/21 Principal diagnosis: Acute kidney injury Interval history: No acute issues overnight. Labs pending this am. Objective - Vital Signs Vital signs: Vital Signs - 12hr 05/10/21 05/10/21 05/11/21 22:58 23:46 03:46 Temperature 98.2 F 98.8 F Pulse Rate 60 59 L Respiratory 19 18 Rate Blood Pressure 170/56 145/51 O2 Sat by Pulse 99 97 100 Oximetry 05/11/21 05/11/21 07:53 08:46 Temperature 98.4 F Pulse Rate 64 Respiratory 18 Rate Blood Pressure 173/62 O2 Sat by Pulse 97 97 Oximetry - General Appearance General appearance: well-developed, well-nourished, appears stated age EENT: ATNC Neck: no JVD Respiratory: Present: Clear to Ascultation Cardiology: regular, S1S2 Gastrointestinal: normal Integumentary: no rash Neurologic: no focal deficit Musculoskeletal: deferred Psychiatric: cooperative - Lab 05/08/21 04:52 05/09/21 15:28 Most recent lab results Calcium 9.0 mg/dL (8.4-10.2) 05/09/21 15:28 - Allied health notes Allied health notes reviewed: nursing Medications & Allergies - Medications Allergies/Adverse Reactions: Allergies insulin lispro [From Humalog U-100 Insulin] Allergy (Verified 05/07/21 12:39) Unknown Home Medications: Home Medications Medication Instructions Recorded Confirmed Last Taken Type Unobtainable 05/10/21 05/10/21 Unknown History Active Medications: Generic Name Dose Route Start Last Admin Trade Name Freq PRN Reason Stop Dose Admin Acetaminophen 650 mg 05/07/21 22:00 Acetaminophen 325 Mg Tab PO Q4H PRN Pain MILD(1-3)/Fever >100.5/CHAPMAN Famotidine 20 mg 05/09/21 10:00 05/10/21 10:36 Famotidine 20 Mg Tab PO 20 mg DAILY ALISIA Administration Heparin Sodium (Porcine) 5,000 unit 05/07/21 22:00 05/10/21 21:09 Heparin 5,000 Unit/1 Ml Vial SUB-Q 5,000 unit Q12HR ALISIA Administration Hydromorphone HCl 0.5 mg 05/07/21 22:00 Hydromorphone 1 Mg/1 Ml Inj IV Q3H PRN Pain , Severe (7-10) Sodium Chloride 1,000 mls @ 125 mls/hr 05/10/21 14:30 05/10/21 21:11 Nacl 0.9% 1000 Ml IV 125 mls/hr DIRECT ALISIA Administration Insulin Human Isoph/Insulin Regular 15 unit 05/11/21 09:00 Insulin Nph/Regular 70/30 Inj SUB-Q BIDDIAB ALISIA Insulin Human Regular 0 units 05/08/21 07:30 05/11/21 08:45 Insulin Regular, Human 100 Units/1 Ml SUB-Q Not Given ACHS [facility] Protocol Metoclopramide HCl 5 mg 05/07/21 23:05 Metoclopramide 10 Mg/2 Ml Inj IV Q6H PRN Nausea And Vomiting Ondansetron HCl 4 mg 05/07/21 22:00 Ondansetron 4 Mg/2 Ml Inj IV Q3H PRN Nausea And Vomiting Oxycodone/Acetaminophen 1 tab 05/07/21 22:00 05/10/21 21:09 Oxycodone /Acetaminophen 5-325mg Tab PO 1 tab Q6H PRN Administration Pain, Moderate (4-6) Sodium Chloride 10 ml 05/07/21 22:00 05/10/21 21:10 Sodium Chloride 0.9% 10 Ml Flush Syringe IV 10 ml BID ALISIA Administration Sodium Chloride 10 ml 05/07/21 22:00 Sodium Chloride 0.9% 10 Ml Flush Syringe IV PRN PRN LINE FLUSH
[2021-05-11] MEDS: FAMOTIDINE 20 MG TAB PO SCH (10:35)
[2021-05-11] MEDS: HEPARIN 5,000 UNIT/1 ML VIAL SUB-Q SCH ×2 (10:35→21:34)
[2021-05-11] MEDS: INSULIN NPH/REGULAR 70/30 INJ SUB-Q SCH ×2 (10:35→18:40)
[2021-05-11] MEDS: hydrALAZINE 25 MG TAB PO SCH ×3 (12:57→21:35)
[2021-05-11] MEDS ORDERED: hydrALAZINE 20 MG/1 ML INJ IV ONE (14:50)
[2021-05-11] MEDS: SODIUM CHLORIDE 0.9% 1000 ML 1,000 ML IV SCH (15:25)
--- NOTE | 2021-05-11 17:34 | Progress Note ---
Assessment and Plan Assessment and plan: -- IRMA (acute kidney injury) Current Visit: Yes Status: Acute Vasomotor nephropathy , gentle hydration Monitor renal function, avoid nephrotoxins Nephrology following, creatinine levels trending down Nephrology cleared for discharge, and follow-up in the office For further evaluation and management -- Syncope/probably autonomic insufficiency Current Visit: Yes Status: Acute Syncope work-up CT head without contrast, carotid Doppler Findings within normal limits No new episodes of syncope, PT OT Recommend subacute versus SNF placement -- T2DM (type 2 diabetes mellitus) Current Visit: Yes Status: Chronic Moderate control , Accu-Chek sliding scale coverage ADA diet Insulin as needed, avoid hypoglycemia[may trigger syncope] --DVT /GI prophylaxis Current Visit: Yes Status: Acute Subcu heparin and Protonix Full CODE STATUS We will closely monitor the patient Subjective Date of service: 05/10/21 Principal diagnosis: Acute kidney injury Interval history: 76-year-old female, history of diabetes, colon cancer, chronic kidney disease, presents to ED following fall at home. Patient states that she has a stool that sits on top of her toilet. Patient states she went to use the bathroom. While sitting on the stool, it fell off of the toilet, and patient reports she also fell, hitting her head and her right arm. She denies any LOC. EMS was called for the fall and found that patient was hyperglycemic when they did Accu-Chek. Patient reports chronic knee pain. States she ambulates with a walker. Day #2 Creatinine improving Continue IV fluids Physical therapy Day #3 Creatinine improving Bun/cr 107/3.2 to 79/2.4 05/11/2021; PT recommended subacute rehab/SNF Slightly uncontrolled blood pressures, adjust antihypertensives I discussed with patient's daughter Patient and the daughter did not want placement at this point They want to try home health services/home PT Possible discharge home with [facility] tomorrow stable History Interval history: I have seen and examined the patient in his room this afternoon Patient's chart and medications reviewed Patient was admitted with syncopal episode Syncope work-up with CT head carotid Dopplers are within normal limits No new episodes of syncope Vital signs noted Hospitalist Physical - Constitutional Vitals: Temp Pulse Resp BP Pulse Ox 98.6 F 69 18 176/84 100 05/11/21 12:06 05/11/21 12:06 05/11/21 12:06 05/11/21 14:49 05/11/21 12:06 General appearance: Present: no acute distress, well-nourished, obese - EENT Eyes: Present: PERRL, EOM intact - Neck Neck: Present: supple, normal ROM - Respiratory Respiratory effort: normal Respiratory: bilateral: diminished, negative: rales, rhonchi, wheezing - Cardiovascular Rhythm: regular Heart Sounds: Present: S1 & S2 - Extremities Extremities: no ischemia, No edema - Abdominal General gastrointestinal: soft, non-tender, non-distended, normal bowel sounds - Integumentary Integumentary: Present: clear, warm - Psychiatric Psychiatric: appropriate mood/affect, cooperative - Neurologic Neurologic: CNII-XII intact, moves all extremities Results - Labs CBC & Chem 7: 05/08/21 04:52 05/11/21 09:52 Labs: Laboratory Last Values WBC 11.3 K/mm3 (4.5-11.0) H 05/08/21 04:52 RBC 2.98 M/mm3 (3.65-5.03) L 05/08/21 04:52 Hgb 8.7 gm/dl (10.1-14.3) L 05/08/21 04:52 Hct 26.3 % (30.3-42.9) L 05/08/21 04:52 MCV 88 fl (79-97) 05/08/21 04:52 MCH 29 pg (28-32) 05/08/21 04:52 MCHC 33 % (30-34) 05/08/21 04:52 RDW 13.4 % (13.2-15.2) 05/08/21 04:52 Plt Count 285 K/mm3 (140-440) 05/08/21 04:52 Add Manual Diff Complete 05/08/21 04:52 Total Counted 100 05/08/21 04:52 Seg Neutrophils % Dye [employer] 05/07/21 14:49 Seg Neuts % (Manual) 91.0 % (40.0-70.0) H 05/08/21 04:52 Band Neutrophils % 1.0 % 05/08/21 04:52 Lymphocytes % (Manual) 3.0 % (13.4-35.0) L 05/08/21 04:52 Reactive Lymphs % (Man) 1.0 % 05/08/21 04:52 Monocytes % (Manual) 4.0 % (0.0-7.3) 05/08/21 04:52 Nucleated RBC % Not Reportable 05/08/21 04:52 Seg Neutrophils # Man 10.3 K/mm3 (1.8-7.7) H 05/08/21 04:52 Band Neutrophils # 0.1 K/mm3 05/08/21 04:52 Lymphocytes # (Manual) 0.3 K/mm3 (1.2-5.4) L 05/08/21 04:52 Abs React Lymphs (Man) 0.1 K/mm3 05/08/21 04:52 Monocytes # (Manual) 0.5 K/mm3 (0.0-0.8) 05/08/21 04:52 Eosinophils # (Manual) 0.0 K/mm3 (0.0-0.4) 05/08/21 04:52 Basophils # (Manual) 0.0 K/mm3 (0.0-0.1) 05/08/21 04:52 Metamyelocytes # 0.0 K/mm3 05/08/21 04:52 Myelocytes # 0.0 K/mm3 05/08/21 04:52 Promyelocytes # 37.5 K/mm3 05/08/21 04:52 Blast Cells # 0.0 K/mm3 05/08/21 04:52 WBC Morphology Not Reportable 05/08/21 04:52 Hypersegmented Neuts Not Reportable 05/08/21 04:52 Hyposegmented Neuts Not Reportable 05/08/21 04:52 Hypogranular Neuts Not Reportable 05/08/21 04:52 Smudge Cells Not Reportable 05/08/21 04:52 Toxic Granulation Not Reportable 05/08/21 04:52 Toxic Vacuolation Not Reportable 05/08/21 04:52 Dohle Bodies Not Reportable 05/08/21 04:52 Pelger-Huet Anomaly Not Reportable 05/08/21 04:52 Aviva Rods Not Reportable 05/08/21 04:52 Platelet Estimate Consistent w auto 05/08/21 04:52 Clumped Platelets Not Reportable 05/08/21 04:52 Plt Clumps, EDTA Not Reportable 05/08/21 04:52 Large Platelets Not Reportable 05/08/21 04:52 Giant Platelets Not Reportable 05/08/21 04:52 Platelet Satelliting Not Reportable 05/08/21 04:52 Plt Morphology Comment Not Reportable 05/08/21 04:52 RBC Morphology Not Reportable 05/08/21 04:52 Dimorphic RBCs Not Reportable 05/08/21 04:52 Polychromasia Not Reportable 05/08/21 04:52 Hypochromasia 1+ 05/08/21 04:52 Poikilocytosis Not Reportable 05/08/21 04:52 Anisocytosis Not Reportable 05/08/21 04:52 Microcytosis Not Reportable 05/08/21 04:52 Macrocytosis Not Reportable 05/08/21 04:52 Spherocytes Not Reportable 05/08/21 04:52 Pappenheimer Bodies Not Reportable 05/08/21 04:52 Sickle Cells Not Reportable 05/08/21 04:52 Target Cells Not Reportable 05/08/21 04:52 Tear Drop Cells Not Reportable 05/08/21 04:52 Ovalocytes Not Reportable 05/08/21 04:52 Helmet Cells Not Reportable 05/08/21 04:52 [place] Bodies Not Reportable 05/08/21 04:52 Worden Rings Not Reportable 05/08/21 04:52 [place] Cells Not Reportable 05/08/21 04:52 Bite Cells Not Reportable 05/08/21 04:52 Crenated Cell Not Reportable 05/08/21 04:52 Elliptocytes Not Reportable 05/08/21 04:52 Acanthocytes (Spur) Not Reportable 05/08/21 04:52 Rouleaux Not Reportable 05/08/21 04:52 Hemoglobin C Crystals Not Reportable 05/08/21 04:52 Schistocytes Not Reportable 05/08/21 04:52 Malaria parasites Not Reportable 05/08/21 04:52 Stanley Bodies Not Reportable 05/08/21 04:52 Hem Pathologist Commnt No 05/08/21 04:52 VBG pH 7.407 (7.320-7.420) 05/07/21 14:49 Sodium 142 mmol/L (137-145) 05/11/21 09:52 Potassium 4.1 mmol/L (3.6-5.0) 05/11/21 09:52 Chloride 107.5 mmol/L (98-107) H 05/11/21 09:52 Carbon Dioxide 23 mmol/L (22-30) 05/11/21 09:52 Anion Gap 16 mmol/L 05/11/21 09:52 BUN 60 mg/dL (7-17) H 05/11/21 09:52 Creatinine 2.1 mg/dL (0.6-1.2) H 05/11/21 09:52 Estimated GFR 28 ml/min 05/11/21 09:52 BUN/Creatinine Ratio 29 % 05/11/21 09:52 Glucose 181 mg/dL (65-100) H 05/11/21 09:52 POC Glucose 94 mg/dL (70-105) 05/11/21 16:06 Hemoglobin A1c 9.6 % (4-6) H 05/08/21 04:52 Calcium 9.0 mg/dL (8.4-10.2) 05/11/21 09:52 Total Bilirubin 0.20 mg/dL (0.1-1.2) 05/08/21 04:52 AST 20 units/L (5-40) 05/08/21 04:52 ALT 14 units/L (7-56) 05/08/21 04:52 Alkaline Phosphatase 38 units/L (35-129) 05/08/21 04:52 Total Protein 6.8 g/dL (6.3-8.2) 05/08/21 04:52 Albumin 3.2 g/dL (3.9-5) L 05/08/21 04:52 Albumin/Globulin Ratio 0.9 % 05/08/21 04:52 Urine Color Straw (Yellow) 05/07/21 Unknown Urine Turbidity Clear (Clear) 05/07/21 Unknown Urine pH 5.0 (5.0-7.0) 05/07/21 Unknown Ur Specific [place] 1.010 (1.003-1.030) 05/07/21 Unknown Urine Protein <15 mg/dl mg/dL (Negative) 05/07/21 Unknown Urine Glucose (UA) >=500 mg/dL (Negative) 05/07/21 Unknown Urine Ketones Neg mg/dL (Negative) 05/07/21 Unknown Urine Blood Neg (Negative) 05/07/21 Unknown Urine Nitrite Neg (Negative) 05/07/21 Unknown Urine Bilirubin Neg (Negative) 05/07/21 Unknown Urine Urobilinogen < 2.0 mg/dL (<2.0) 05/07/21 Unknown Ur Leukocyte Esterase Neg (Negative) 05/07/21 Unknown Urine WBC (Auto) 4.0 /HPF (0.0-6.0) 05/07/21 Unknown Urine RBC (Auto) 1.0 /HPF (0.0-6.0) 05/07/21 Unknown U Epithel Cells (Auto) 4.0 /HPF (0-13.0) 05/07/21 Unknown Urine Bacteria (Auto) 1+ /HPF (Negative) 05/07/21 Unknown Urine Mucus Few /HPF 05/07/21 Unknown Barragan/IV: Voiding Method External Female Catheter Active Medications - Current Medications Current Medications: Generic Name Dose Route Start Last Admin Trade Name Freq PRN Reason Stop Dose Admin Acetaminophen 650 mg 05/07/21 22:00 Acetaminophen 325 Mg Tab PO Q4H PRN Pain MILD(1-3)/Fever >100.5/CHAPMAN Famotidine 20 mg 05/09/21 10:00 05/11/21 10:35 Famotidine 20 Mg Tab PO 20 mg DAILY ALISIA Administration Heparin Sodium (Porcine) 5,000 unit 05/07/21 22:00 05/11/21 10:35 Heparin 5,000 Unit/1 Ml Vial SUB-Q 5,000 unit Q12HR ALISIA Administration Hydralazine HCl 25 mg 05/11/21 14:00 05/11/21 13:00 Hydralazine 25 Mg Tab PO Not Given Q8HR ALISIA Hydromorphone HCl 0.5 mg 05/07/21 22:00 Hydromorphone 1 Mg/1 Ml Inj IV Q3H PRN Pain , Severe (7-10) Sodium Chloride 1,000 mls @ 125 mls/hr 05/10/21 14:30 05/11/21 15:25 Nacl 0.9% 1000 Ml IV 125 mls/hr DIRECT ALISAI Administration Insulin Human Isoph/Insulin Regular 15 unit 05/11/21 09:00 05/11/21 10:35 Insulin Nph/Regular 70/30 Inj SUB-Q 15 unit BIDDIAB ALISIA Administration Insulin Human Regular 0 units 05/08/21 07:30 05/11/21 12:57 Insulin Regular, Human 100 Units/1 Ml SUB-Q 2 units ACHS ALISIA Administration Protocol Metoclopramide HCl 5 mg 05/07/21 23:05 Metoclopramide 10 Mg/2 Ml Inj IV Q6H PRN Nausea And Vomiting Ondansetron HCl 4 mg 05/07/21 22:00 Ondansetron 4 Mg/2 Ml Inj IV Q3H PRN Nausea And Vomiting Oxycodone/Acetaminophen 1 tab 05/07/21 22:00 05/10/21 21:09 Oxycodone /Acetaminophen 5-325mg Tab PO 1 tab Q6H PRN Administration Pain, Moderate (4-6) Sodium Chloride 10 ml 05/07/21 22:00 05/11/21 10:35 Sodium Chloride 0.9% 10 Ml Flush Syringe IV 10 ml BID ALISIA Administration Sodium Chloride 10 ml 05/07/21 22:00 Sodium Chloride 0.9% 10 Ml Flush Syringe IV PRN PRN LINE FLUSH
[2021-05-12] MEDS: INSULIN NPH/REGULAR 70/30 INJ SUB-Q SCH ×2 (07:47→17:43)
[2021-05-12] MEDS: INSULIN REGULAR, HUMAN 100 UNITS/1 ML SUB-Q SCH ×3 (07:55→18:43)
[2021-05-12] MEDS: hydrALAZINE 25 MG TAB PO SCH ×2 (08:04→15:26)
[2021-05-12] MEDS: HEPARIN 5,000 UNIT/1 ML VIAL SUB-Q SCH (11:04)
[2021-05-12] MEDS: FAMOTIDINE 20 MG TAB PO SCH (11:05)
--- NOTE | 2021-05-12 11:07 | Progress Note ---
Assessment and Plan - Patient Problems (1) IRMA (acute kidney injury) Current Visit: Yes Status: Acute Plan to address problem: after gentle IV fluid hydration it seems that her renal function has been showing improvement. No acute indications for renal replacement therapy at this time. She likely has underlying chronic kidney disease stage IV and she is under the care of her document reviewer back home. she is stable for DC with instructions to follow up with her outpatient document reviewer ~1-2 weeks post discharge. (2) Hypertensive chronic kidney disease with stage 1 through stage 4 chronic kidney disease, or unspecified chronic kidney disease Current Visit: Yes Status: Chronic Plan to address problem: monitor blood pressures under current regimen. (3) T2DM (type 2 diabetes mellitus) Current Visit: Yes Status: Chronic Qualifiers: Diabetes mellitus fpc insulin use: unspecified fpc insulin use status Plan to address problem: diabetes management per primary attending (4) Syncope Current Visit: Yes Status: Acute Plan to address problem: patient had carotid ultrasound done with less than 50% diameter stenosis noted in both left/right carotids. Subjective Date of service: 05/12/21 Principal diagnosis: Acute kidney injury Interval history: Pt awake, alert, in no acute distress Objective - Vital Signs Vital signs: Vital Signs - 12hr 05/11/21 05/12/21 05/12/21 23:39 04:58 06:00 Temperature 97.4 F L 97.6 F Pulse Rate 62 69 60 Respiratory 18 20 Rate Blood Pressure 188/67 191/78 O2 Sat by Pulse 100 100 Oximetry - General Appearance General appearance: well-developed, well-nourished, appears stated age EENT: ATNC, PERRL, mucous membranes moist Neck: no JVD Respiratory: Present: Clear to Ascultation Cardiology: regular, S1S2 Gastrointestinal: normoactive bowel sounds Integumentary: no rash Neurologic: no focal deficit, alert and oriented x3, strength 5/5, CN 3-12 intact Psychiatric: mood/affect appropriate, cooperative - Lab 05/08/21 04:52 05/11/21 09:52 Most recent lab results Calcium 9.0 mg/dL (8.4-10.2) 05/11/21 09:52 Medications & Allergies - Medications Allergies/Adverse Reactions: Allergies insulin lispro [From Humalog U-100 Insulin] Allergy (Verified 05/07/21 12:39) Unknown Home Medications: Home Medications Medication Instructions Recorded Confirmed Last Taken Type Unobtainable 05/10/21 05/10/21 Unknown History Active Medications: Generic Name Dose Route Start Last Admin Trade Name Freq PRN Reason Stop Dose Admin Acetaminophen 650 mg 05/07/21 22:00 Acetaminophen 325 Mg Tab PO Q4H PRN Pain MILD(1-3)/Fever >100.5/CHAPMAN Famotidine 20 mg 05/09/21 10:00 05/12/21 11:05 Famotidine 20 Mg Tab PO 20 mg DAILY ALISIA Administration Heparin Sodium (Porcine) 5,000 unit 05/07/21 22:00 05/12/21 11:04 Heparin 5,000 Unit/1 Ml Vial SUB-Q 5,000 unit Q12HR ALISIA Administration Hydralazine HCl 25 mg 05/11/21 14:00 05/12/21 08:04 Hydralazine 25 Mg Tab PO 25 mg Q8HR ALISIA Administration Hydromorphone HCl 0.5 mg 05/07/21 22:00 Hydromorphone 1 Mg/1 Ml Inj IV Q3H PRN Pain , Severe (7-10) Sodium Chloride 1,000 mls @ 125 mls/hr 05/10/21 14:30 05/11/21 15:25 Nacl 0.9% 1000 Ml IV 125 mls/hr DIRECT ALISIA Administration Insulin Human Isoph/Insulin Regular 15 unit 05/11/21 09:00 05/12/21 07:47 Insulin Nph/Regular 70/30 Inj SUB-Q Not Given BIDDIAB [facility] Insulin Human Regular 0 units 05/08/21 07:30 05/12/21 07:55 Insulin Regular, Human 100 Units/1 Ml SUB-Q Not Given ACHS [facility] Protocol Metoclopramide HCl 5 mg 05/07/21 23:05 Metoclopramide 10 Mg/2 Ml Inj IV Q6H PRN Nausea And Vomiting Ondansetron HCl 4 mg 05/07/21 22:00 Ondansetron 4 Mg/2 Ml Inj IV Q3H PRN Nausea And Vomiting Oxycodone/Acetaminophen 1 tab 05/07/21 22:00 05/10/21 21:09 Oxycodone /Acetaminophen 5-325mg Tab PO 1 tab Q6H PRN Administration Pain, Moderate (4-6) Sodium Chloride 10 ml 05/07/21 22:00 05/11/21 21:34 Sodium Chloride 0.9% 10 Ml Flush Syringe IV 10 ml BID ALISIA Administration Sodium Chloride 10 ml 05/07/21 22:00 Sodium Chloride 0.9% 10 Ml Flush Syringe IV PRN PRN LINE FLUSH
--- NOTE | 2021-05-12 11:37 | Discharge Summary ---
Providers - Providers Date of Admission: 05/08/21 12:00 Date of discharge: 05/12/21 Attending physician: LEIGH RIVAS 05/07/21 17:43 Consult to Physician [CONS] Stat Comment: Consulting Provider: STEFANY LINDA Physician Instructions: Reason For Exam: renal insufficiency 05/10/21 12:00 Physical Therapy Evaluation and Treat [CONS] Routine Comment: Reason For Exam: to eval for gait due to fall at home Primary care physician: SURGICAL LEAD Hospitalization Condition: Stable Hospital course: -- IRMA (acute kidney injury) Current Visit: Yes Status: Acute Vasomotor nephropathy , gentle hydration Monitor renal function, avoid nephrotoxins Nephrology following, creatinine levels trending down Nephrology cleared for discharge, and follow-up in the office For further evaluation and management -- Syncope/probably autonomic insufficiency Current Visit: Yes Status: Acute Syncope work-up CT head without contrast, carotid Doppler Findings within normal limits No new episodes of syncope, PT OT Recommend subacute versus SNF placement -- T2DM (type 2 diabetes mellitus) Current Visit: Yes Status: Chronic Moderate control , Accu-Chek sliding scale coverage ADA diet Insulin as needed, avoid hypoglycemia[may trigger syncope]--moderate malnutrition Disposition: DC/[place]-06 HOME UNDER HOME HL Final Discharge Diagnosis (Prints w/discharge instructions): Acute kidney injury. Syncope. Autonomic insufficiency. Type 2 diabetes mellitus. Moderate malnutrition Time spent for discharge: 35 min Core Measure Documentation - Palliative Care Palliative Care/ Comfort Measures: Not Applicable - Core Measures Any of the following diagnoses?: none Exam - Constitutional Vitals: Temp Pulse Resp BP Pulse Ox 97.6 F 60 20 191/78 100 05/12/21 04:58 05/12/21 06:00 05/12/21 04:58 05/12/21 04:58 05/12/21 04:58 General appearance: Present: no acute distress, well-nourished - EENT Eyes: Present: PERRL, EOM intact - Neck Neck: Present: supple, normal ROM - Respiratory Respiratory effort: normal Respiratory: bilateral: diminished, negative: rales, rhonchi, wheezing - Cardiovascular Rhythm: regular Heart Sounds: Present: S1 & S2 - Extremities Extremities: no ischemia, No edema - Abdominal General gastrointestinal: Present: soft, non-tender, non-distended, normal bowel sounds - Integumentary Integumentary: Present: clear, warm - Musculoskeletal Musculoskeletal: strength equal bilaterally, generalized weakness - Psychiatric Psychiatric: appropriate mood/affect, cooperative - Neurologic Neurologic: CNII-XII intact, moves all extremities Plan Activity: advance as tolerated, fall precautions Diet: diabetic Additional Instructions: Fall precautions. Advised to hold diabetic medications for 2 to 3 days, as her sugars are in the lower range, due to poor oral intake[patient does not like the hospital food]. May start back on her diabetic medications when her sugars go up after 2-3 days Follow up with: PRIMARY CARE, [Primary Care Provider] - 3-5 Days QUEENIE LARA DO [Staff Physician] - 7 Days Prescriptions: hydrALAZINE [Apresoline TAB] 25 mg PO Q8HR #90 tablet Famotidine [Pepcid] 20 mg PO DAILY #30 tablet
[2021-05-12] MEDS ORDERED: hydrALAZINE 20 MG/1 ML INJ ONE (15:14)
[2021-05-12] MEDS ORDERED: hydrALAZINE 20 MG/1 ML INJ IV PRN (15:14)
[2021-05-12 15:55] VITALS: BP 156/54
[2021-05-12] MEDS ORDERED: hydrALAZINE 20 MG/1 ML INJ IV ONE (16:00)
[2021-05-12] MEDS ORDERED: ALPRAZolam 0.25 MG TAB PO PRN (16:00)
--- NOTE | 2021-05-15 10:06 | Electrocardiograph Report ---
[facility] Test Date: 2021-05-08 Test Time: 08:05:15 Pat Name: JUAN MANUEL CHUNG Department: Room: A483 1 Gender: F Internet Developer: RICHY : 1945 Requested By: NEELIMA VALENZUELA Order Number: [id number] Reading MD: Luiz Meeks Measurements Intervals [place] Rate: 53 P: 40 MS: 227 QRS: 57 QRSD: 107 T: 56 QT: 449 QTc: 423 Interpretive Statements Sinus bradycardia Prolonged MS interval Probable left ventricular hypertrophy Compared to ECG 05/07/2021 17:17:23 Sinus rhythm no longer present Electronically Signed On 05-15-2021 10:06:40 EDT by Luiz Meeks
== END 2021-05-12 21:31 | disposition home health service (06) | DRG 683 ==
LOC: ED 12:33 → 4A 17:25 → OBSVTOIN 05-08 12:00
PROVIDERS: ADMIT Internal Medicine; ATTEND Internal Medicine
DX: N17.0 Acute kidney failure with tubular necrosis (principal); E44.0 Moderate protein-calorie malnutrition; E11.22 Type 2 diabetes mellitus with diabetic chronic kidney disease; I12.9 Hypertensive chronic kidney disease with stage 1 through stage 4 chronic kidney disease, or unspecified chronic kidney disease; N18.4 Chronic kidney disease, stage 4 (severe); M19.90 Unspecified osteoarthritis, unspecified site; W18.39XA Other fall on same level, initial encounter; J45.909 Unspecified asthma, uncomplicated; E11.65 Type 2 diabetes mellitus with hyperglycemia; Z79.899 Other long term (current) drug therapy; Z79.891 Long term (current) use of opiate analgesic; Z79.01 Long term (current) use of anticoagulants; Z85.038 Personal history of other malignant neoplasm of large intestine; Z88.8 Allergy status to other drugs, medicaments and biological substances; Y93.89 Activity, other specified; Y92.89 Other specified places as the place of occurrence of the external cause; Y99.8 Other external cause status; Z68.27 Body mass index [BMI] 27.0-27.9, adult; Z79.84 Long term (current) use of oral hypoglycemic drugs
CPT/HCPCS: 36415; 70450; 71045; 80048; 80053; 81001; 82805; 82962; 83036; 85007; 85025; 93005; 93880; G0378; J0360; J1644; J1815; J7030

== ENCOUNTER 2021-07-03 19:10 | Inpatient (IN) | payer MEDICARE ==
[2021-07-03] MEDS ORDERED: fentaNYL 100 MCG/2 ML INJ IV ONE (21:46)
[2021-07-03] MEDS ORDERED: ONDANSETRON 4 MG/2 ML INJ IV ONE (21:47)
[2021-07-03] MEDS ORDERED: KETOROLAC 30 MG/1 ML INJ IV ONE (21:47)
--- NOTE | 2021-07-03 21:50 | Emergency Department Report ---
HPI - General Chief Complaint: Medical Clearance Time Seen by Provider: 07/03/21 21:30 - HPI HPI: Room 24 The patient is a 76-year-old female present with a chief complaint of knee pain. The patient states she has had pain in bilateral knees times several months. Patient states she came to the hospital in the past for and been diagnosed with arthritis/gout. Patient denies any recent trauma. Patient currently gives her pain a score of 10/10. Patient states she gets around in a wheelchair for months. Patient states she has not walked for months ED Past Medical Hx - Past Medical History Hx Hypertension: Yes Hx Diabetes: Yes Hx Pulmonary Embolism: Yes Hx of Cancer: Yes (: CN) Hx Arthritis: Yes (Gout) Hx Asthma: Yes Additional medical history: Colon CA - Surgical History Additional Surgical History: Left foot infection surgery - Family History Family history: no significant - Social History Smoking Status: Never Smoker Substance Use Type: None - Medications Home Medications: Home Medications Medication Instructions Recorded Confirmed Last Taken Type Famotidine [Pepcid] 20 mg PO BID #60 tablet 05/12/21 Unknown Rx HYDROcodone/APAP 10-325 [[place] 1 each PO BID PRN #10 tablet 05/12/21 Unknown Rx 10/325] Triamterene/Hydrochlorothiazid 1 each PO DAILY #30 capsule 05/12/21 Unknown Rx [Triamterene-Hctz 37.5-25 mg Cp] amLODIPine 5 mg PO DAILY #30 tab 05/12/21 Unknown Rx carvediloL [Coreg] 25 mg PO BID #60 tablet 05/12/21 Unknown Rx dexAMETHasone [Decadron] 4 mg PO DAILY #14 tablet 05/12/21 Unknown Rx hydrALAZINE [Apresoline TAB] 25 mg PO Q8HR #90 tab 05/12/21 Unknown Rx ED Review of Systems ROS: Stated complaint: KNEE PAIN BOTH Other details as noted in HPI Constitutional: denies: fever Eyes: denies: eye pain ENT: denies: throat pain Respiratory: no symptoms reported Cardiovascular: denies: chest pain Endocrine: no symptoms reported Gastrointestinal: denies: abdominal pain Genitourinary: denies: dysuria Musculoskeletal: arthralgia Neurological: headache Physical Exam - Physical Exam Vital Signs: Vital Signs 07/03/21 20:55 Temperature 99.1 F Pulse Rate 97 H Respiratory 18 Rate Blood Pressure 196/77 [Left] O2 Sat by Pulse 97 Oximetry Physical Exam: GENERAL: The patient is well-developed well-nourished female lying on stretcher not appearing to be in acute distress. [] HEENT: Normocephalic. Atraumatic. Extraocular motions are intact. Patient has moist mucous membranes. NECK: Supple. Trachea midline CHEST/LUNGS: Clear to auscultation. There is no respiratory distress noted. HEART/CARDIOVASCULAR: Regular. There is no tachycardia. There is no gallop rub or murmur. ABDOMEN: Abdomen is soft, nontender. Patient has normal bowel sounds. There is no abdominal distention. SKIN: There is no rash. There is no diaphoresis. NEURO: The patient is awake, alert, and oriented. The patient is cooperative. The patient has no focal neurologic deficits. The patient has normal speech and gait. MUSCULOSKELETAL: There is mild swelling to the knees bilaterally. There is no evidence of acute injury. ED Course Vital Signs 07/03/21 20:55 Temperature 99.1 F Pulse Rate 97 H Respiratory 18 Rate Blood Pressure 196/77 [Left] O2 Sat by Pulse 97 Oximetry - Consultations Consultation #1: 07/03/21 21:52 The patient's primary physician Dr. Thomas was called at [phone] and was returned by the nurse practitioner Marcelino Jaime-he was made aware of the patient 's presentation and plan work-up. He states he will contact Dr. Thomas during business hours for follow-up ED Medical Decision Making - Lab Data Result diagrams: 07/03/21 21:45 07/03/21 21:45 Laboratory Tests 07/03/21 07/03/21 21:45 21:45 WBC 12.3 H RBC 2.83 L Hgb 8.1 L Hct 25.7 L MCV 91 MCH 29 MCHC 31 RDW 17.7 H Plt Count 287 Lymph % (Auto) 6.9 L Hanson % (Auto) 7.7 H Eos % (Auto) 0.4 Baso % (Auto) 0.1 Lymph # (Auto) 0.9 L Hanson # (Auto) 0.9 H Eos # (Auto) 0.1 Baso # (Auto) 0.0 Seg Neutrophils % 84.9 H Seg Neutrophils # 10.4 H Sodium 138 Potassium 4.2 Chloride 103.0 Carbon Dioxide 21 L Anion Gap 18 BUN 20 H Creatinine 1.4 H Estimated GFR 44 BUN/Creatinine Ratio 14 Glucose 176 H Calcium 9.0 - Radiology Data Radiology results: report reviewed (Bilateral lower extremity Doppler), image reviewed (Bilateral lower extremity Doppler) [facility] [address] [place] [address] Vascular Lab Report Signed Patient: JUAN MANUEL CHUNG MR#: [id number] : 1945 Acct:[id number] Age/Sex: 76 / F ADM Date: 07/03/21 Loc: ED Attending Dr: Ordering Physician: MIC CHAU MD Date of Service: 07/03/21 Procedure(s): VL venous duplex LE BILAT Accession Number(s): [id number] cc: MIC CHAU MD DUPLEX DOPPLER LOWER EXTREMITY VEINS, BILATERAL INDICATION / CLINICAL INFORMATION: Bilateral lower extremity pain. TECHNIQUE: Duplex doppler imaging was performed through the veins of both lower extremities using venous compression and other maneuvers. COMPARISON: None available. FINDINGS: RIGHT COMMON FEMORAL VEIN: Negative. RIGHT FEMORAL VEIN: Negative. RIGHT POPLITEAL VEIN: Negative. RIGHT CALF VEINS: Negative. LEFT COMMON FEMORAL VEIN: Positive LEFT FEMORAL VEIN: Positive LEFT POPLITEAL VEIN: Negative. LEFT CALF VEINS: Negative. ADDITIONAL FINDINGS: None. IMPRESSION: Positive examination for DVT within the left common femoral, superficial femoral and popliteal veins. Signer Name: Jitendra Ventura MD Signed: 07/03/2021 11:03 PM Workstation Name: [id number] Transcribed By: SB Dictated By: JITENDRA VENTURA MD Electronically Authenticated By: JITENDRA VENTURA MD Signed Date/Time: 07/03/212302 DD/ 00 TD/TT: Print Cancel - Differential Diagnosis Gout, DVT, osteoarthritis Critical care attestation.: If time is entered above; I have spent that time in minutes in the direct care of this critically ill patient, excluding procedure time. ED Disposition Clinical Impression: Left leg DVT, Bilateral knee pain Disposition: ADMITTED INPATIENT Is pt being admited?: Yes Does the pt Need Aspirin: No Condition: Fair Time of Disposition: 23:21 (Hospitalist called (Dr yLnne))
[2021-07-03] MEDS ORDERED: COLCHICINE 0.6 MG TAB PO NR (21:54)
[2021-07-03 22:08] LABS: Basophils % (Auto) 0.1 % (0.0-1.8); Eosinophils # (Auto) 0.1 K/mm3 (0.0-0.4); Eosinophils % (Auto) 0.4 % (0.0-4.3); Hematocrit 25.7 % (30.3-42.9); Hemoglobin 8.1 gm/dl (10.1-14.3); Lymphocytes # (Auto) 0.9 K/mm3 (1.2-5.4); Lymphocytes % (Auto) 6.9 % (13.4-35.0); Mean Corpuscular HGB Conc 31 % (30-34); Mean Corpuscular Volume 91 fl (79-97); Monocytes # (Auto) 0.9 K/mm3 (0.0-0.8); Monocytes % (Auto) 7.7 % (0.0-7.3); Platelet Count 287 K/mm3 (140-440); Red Blood Count 2.83 M/mm3 (3.65-5.03); Red Cell Distribution Width 17.7 % (13.2-15.2)
--- NOTE | 2021-07-03 23:07 | Vascular Lab Report ---
DUPLEX DOPPLER LOWER EXTREMITY VEINS, BILATERAL INDICATION / CLINICAL INFORMATION: Bilateral lower extremity pain. TECHNIQUE: Duplex doppler imaging was performed through the veins of both lower extremities using mikaela ous compression and other maneuvers. COMPARISON: None available. FINDINGS: RIGHT COMMON FEMORAL VEIN: Negative. RIGHT FEMORAL VEIN: Negative. RIGHT POPLITEAL VEIN: Negative. RIGHT CALF VEINS: Negative. LEFT COMMON FEMORAL VEIN: Positive LEFT FEMORAL VEIN: Positive LEFT POPLITEAL VEIN: Negative. LEFT CALF VEINS: Negative. ADDITIONAL FINDINGS: None. IMPRESSION: Positive examination for DVT within the left common femoral, superficial femoral and popliteal veins. Signer Name: Jitendra Ventura MD Signed: 07/03/2021 11:03 PM Workstation Name: [id number]
[2021-07-03 23:40] LABS: INR 0.9 (0.87-1.13)
[2021-07-03 23:41] LABS: Partial Thromboplastin Time 22.4 Sec. (24.2-36.6)
[2021-07-04] MEDS ORDERED: NALOXONE 0.4 MG/1 ML INJ IV PRN (01:00)
[2021-07-04] MEDS ORDERED: ALBUTEROL 2.5 MG/3 ML NEBU IH PRN (01:00)
[2021-07-04] MEDS ORDERED: ACETAMINOPHEN 325 MG TAB PO PRN (01:00)
[2021-07-04] MEDS ORDERED: ONDANSETRON 4 MG/2 ML INJ IV PRN (01:00)
[2021-07-04] MEDS ORDERED: DEXTROSE 50% IN WATER (25GM) 50 ML SYRINGE IV PRN (01:00)
[2021-07-04] MEDS ORDERED: oxyCODONE /ACETAMINOPHEN 5-325MG TAB PO PRN (01:00)
--- NOTE | 2021-07-04 01:26 | History and Physical Report ---
History of Present Illness Date of examination: 07/03/21 Date of admission: 07/03/21 23:58 Chief complaint: Bilateral knee pain History of present illness: 76-year-old -Faroese female with history of HTN, DM 2, colon CA, PE ( bot on a/c), gout, arthritis, and asthma who presents [facility] ED with complaints of bilateral knee pain. Patient reports having intermittent bilateral knee pain for over 6 months. Reports she has not walked in months, and at baseline patient uses a wheelchair to help with ambulation due to limited mobility. However, over the past week the pain has worsened L>R. Presently she complains of 10/10 aching knee pain. The pain is constant and relieved temporarily with pain meds. Denies any recent fall/injury or trauma to legs or knees. Denies fever, chills, nausea, vomiting, diarrhea, headache, chest pain, palpitation, shortness of breath, recent fall, alterations in vision, abdominal pain, flank pain, dysuria, hematuria, or recent sick contacts Past History Past Medical History: cancer (:), diabetes, hypertension, pulmonary embolism, other (Gout, arthritis) Past Surgical History: Other (Left foot infection s/p left foot surgery ) Social history: lives with family (Daughter), full code. denies: smoking, alcohol abuse, prescription drug abuse, IV drug use Family history: hypertension Medications and Allergies Allergies Allergy/AdvReac Type Severity Reaction Status Date / Time insulin lispro Allergy Unknown Verified 05/07/21 12:39 [From Humalog U-100 Insulin] Home Medications Medication Instructions Recorded Confirmed Last Taken Type Famotidine [Pepcid] 20 mg PO BID #60 tablet 05/12/21 Unknown Rx HYDROcodone/APAP 10-325 [[place] 1 each PO BID PRN #10 tablet 05/12/21 Unknown Rx 10/325] Triamterene/Hydrochlorothiazid 1 each PO DAILY #30 capsule 05/12/21 Unknown Rx [Triamterene-Hctz 37.5-25 mg Cp] amLODIPine 5 mg PO DAILY #30 tab 05/12/21 Unknown Rx carvediloL [Coreg] 25 mg PO BID #60 tablet 05/12/21 Unknown Rx dexAMETHasone [Decadron] 4 mg PO DAILY #14 tablet 05/12/21 Unknown Rx hydrALAZINE [Apresoline TAB] 25 mg PO Q8HR #90 tab 05/12/21 Unknown Rx Active Meds: Active Medications Acetaminophen (Acetaminophen 325 Mg Tab) 650 mg PO Q4H PRN PRN Reason: Pain MILD(1-3)/Fever >100.5/CHAPMAN Albuterol (Albuterol 2.5 Mg/3 Ml Nebu) 2.5 mg IH Q4HRT PRN PRN Reason: Shortness Of Breath Amlodipine Besylate (Amlodipine 5 Mg Tab) 5 mg PO DAILY ALISIA Carvedilol (Carvedilol 25 Mg Tab) 25 mg PO BID ALISIA Colchicine (Colchicine 0.6 Mg Tab) 0.6 mg PO QDAY ALISIA Dextrose (Dextrose 50% In Water (25gm) 50 Ml Syringe) 50 ml IV Q30MIN PRN; Protocol PRN Reason: Hypoglycemia Docusate Sodium (Docusate Sodium 100 Mg Cap) 100 mg PO BID ALISIA Famotidine (Famotidine 10 Mg Tab) 10 mg PO BID ALISIA Hydralazine HCl (Hydralazine 25 Mg Tab) 25 mg PO Q8HR ALISIA Heparin Sodium/Sodium Chloride (Heparin/ 0.45% Nacl-25,000 Unit/500 Ml) 25,000 unit in 500 mls @ 0 mls/hr IV TITR ALISIA; Protocol Insulin Human Lispro (Insulin Lispro 100 Unit/Ml) 0 unit SUB-Q ACHS ALISIA; Pr otocol Naloxone HCl (Naloxone 0.4 Mg/1 Ml Inj) 0.1 mg IV Q2MIN PRN PRN Reason: Res Rate </= 8 or 02 SAT < 92% Ondansetron HCl (Ondansetron 4 Mg/2 Ml Inj) 4 mg IV Q6H PRN PRN Reason: Nausea And Vomiting Oxycodone/Acetaminophen (Oxycodone /Acetaminophen 5-325mg Tab) 1 tab PO Q6H PRN PRN Reason: Pain, Moderate (4-6) Sodium Chloride (Sodium Chloride 0.9% 10 Ml Flush Syringe) 10 ml IV BID ALISIA Sodium Chloride (Sodium Chloride 0.9% 10 Ml Flush Syringe) 10 ml IV PRN PRN PRN Reason: LINE FLUSH Review of Systems All systems: negative (As noted in HPI) Exam - Physical Exam Narrative exam: Physical exam General appearance: Present: No acute distress, alert and oriented 3, older adult female - EENT Eyes: Present: PERRL, EOM intact ENT: hearing intact, missing teeth - Neck Neck: Present: supple, normal ROM - Respiratory Respiratory effort: Non-labored Respiratory: Clear throughout - Cardiovascular Heart rate: 92 (bpm) Rhythm: Sinus Heart Sounds: Present: S1 & S2. Absent: rub, click - Extremities Extremities: no ischemia, pulses intact, - Peripheral Assessment Peripheral Pulses: within normal limits - Abdominal General gastrointestinal: Obese, soft, non-tender, normal bowel sounds - Integumentary Integumentary: Present: warm, dry - Musculoskeletal Musculoskeletal: Able to move all extremities, limited ROM in bilateral knees, chronic debility uses wheelchair at baseline -Neurological Neurological: CN II-XII intact - Psychiatric Psychiatric: cooperative - Constitutional Vitals: Temp Pulse Resp BP Pulse Ox 99.1 F 95 H 26 H 184/97 100 07/03/21 20:55 07/03/21 23:16 07/03/21 23:38 07/03/21 23:16 07/03/21 23:16 Results - Labs CBC & Chem 7: 07/03/21 21:45 07/03/21 21:45 Labs: Laboratory Last Values WBC 12.3 K/mm3 (4.5-11.0) H 07/03/21 21:45 RBC 2.83 M/mm3 (3.65-5.03) L 07/03/21 21:45 Hgb 8.1 gm/dl (10.1-14.3) L 07/03/21 21:45 Hct 25.7 % (30.3-42.9) L 07/03/21 21:45 MCV 91 fl (79-97) 07/03/21 21:45 MCH 29 pg (28-32) 07/03/21 21:45 MCHC 31 % (30-34) 07/03/21 21:45 RDW 17.7 % (13.2-15.2) H 07/03/21 21:45 Plt Count 287 K/mm3 (140-440) 07/03/21 21:45 Lymph % (Auto) 6.9 % (13.4-35.0) L 07/03/21 21:45 Crisp % (Auto) 7.7 % (0.0-7.3) H 07/03/21 21:45 Eos % (Auto) 0.4 % (0.0-4.3) 07/03/21 21:45 Baso % (Auto) 0.1 % (0.0-1.8) 07/03/21 21:45 Lymph # (Auto) 0.9 K/mm3 (1.2-5.4) L 07/03/21 21:45 Crisp # (Auto) 0.9 K/mm3 (0.0-0.8) H 07/03/21 21:45 Eos # (Auto) 0.1 K/mm3 (0.0-0.4) 07/03/21 21:45 Baso # (Auto) 0.0 K/mm3 (0.0-0.1) 07/03/21 21:45 Seg Neutrophils % 84.9 % (40.0-70.0) H 07/03/21 21:45 Seg Neutrophils # 10.4 K/mm3 (1.8-7.7) H 07/03/21 21:45 PT 12.8 Sec. (12.2-14.9) 07/03/21 23:16 INR 0.90 (0.87-1.13) 07/03/21 23:16 APTT 22.4 Sec. (24.2-36.6) L 07/03/21 23:16 Sodium 138 mmol/L (137-145) 07/03/21 21:45 Potassium 4.2 mmol/L (3.6-5.0) 07/03/21 21:45 Chloride 103.0 mmol/L (98-107) 07/03/21 21:45 Carbon Dioxide 21 mmol/L (22-30) L 07/03/21 21:45 Anion Gap 18 mmol/L 07/03/21 21:45 BUN 20 mg/dL (7-17) H 07/03/21 21:45 Creatinine 1.4 mg/dL (0.6-1.2) H 07/03/21 21:45 Estimated GFR 44 ml/min 07/03/21 21:45 BUN/Creatinine Ratio 14 % 07/03/21 21:45 Glucose 176 mg/dL (65-100) H 07/03/21 21:45 Calcium 9.0 mg/dL (8.4-10.2) 07/03/21 21:45 - Imaging and Cardiology Imaging and Cardiology: BLE Doppler: TECHNIQUE: Duplex doppler imaging was performed through the veins of both lower extremities using venous compression and other maneuvers. COMPARISON: None available. FINDINGS: RIGHT COMMON FEMORAL VEIN: Negative. RIGHT FEMORAL VEIN: Negative. RIGHT POPLITEAL VEIN: Negative. RIGHT CALF VEINS: Negative. LEFT COMMON FEMORAL VEIN: Positive LEFT FEMORAL VEIN: Positive LEFT POPLITEAL VEIN: Negative. LEFT CALF VEINS: Negative. ADDITIONAL FINDINGS: None. IMPRESSION: Positive examination for DVT within the left common femoral, superficial femoral and popliteal veins. Signer Name: Jitendra Ventura MD Assessment and Plan Assessment and plan: Left lower extremity DVT -Doppler revealed DVT within the left common femoral, superficial femoral and popliteal veins -Patient has history of PE not on anticoagulation -Heparin protocol initiated, heparin drip started -We will need to transition to oral anticoagulation prior to discharge -Supportive care Acute on chronic bilateral knee pain -Patient has history of arthritis and gout with complaints of chronic knee pain -Complains of worsening L>R knee pain x1 week -Likely due to to #1 -Supportive care History of gout -?? Possible gout flare -Uric acid pending -Started on colchicine HTN -Monitor BP -Resume home hypertensive meds, when appropriate DM2 -POC BG monitoring -SSI coverage prn -HgbA1C pending Leukocytosis -WBC on admission 12.3 -?? Inflammatory response -Afebrile -UA and cultures pending -Will hold off on starting abx for now -Continue to monitor CBC Anemia -Hemoglobin on admission 8.1 -no s/s of active bleeding -Continue to monitor hemoglobin -Transfuse as needed Debility -Uses wheelchair at baseline -PT OT eval pending History of PE -Noted DVT and GI PPX -On Heparin and Pepcid Advance Directives: No VTE prophylaxis?: Chemical, Mechanical Plan of care discussed with patient/family: Yes
[2021-07-04] MEDS ORDERED: HEPARIN/ 0.45% NACL DRIP 25,000 UNIT/500 ML BAG IV SCH (02:00)
[2021-07-04] MEDS: hydrALAZINE 25 MG TAB PO SCH ×3 (05:41→22:15)
[2021-07-04] MEDS ORDERED: INSULIN LISPRO 100 UNIT/ML SUB-Q SCH (07:30)
[2021-07-04] MEDS ORDERED: HEPARIN 10,000 UNITS/10 ML VIAL IV PRN ×2 (09:54→15:44)
[2021-07-04] MEDS ORDERED: HEPARIN 5,000 UNIT/1 ML VIAL SUB-Q SCH (10:00)
--- NOTE | 2021-07-04 11:02 | Progress Note ---
Assessment and Plan Assessment and plan: Left lower extremity DVT -Doppler revealed DVT within the left common femoral, superficial femoral and popliteal veins -Patient has history of PE not on anticoagulation -Heparin protocol initiated -Vascular surgery consultation pending Acute on chronic bilateral knee pain -Patient has history of arthritis and gout with complaints of chronic knee pain -Complains of worsening L>R knee pain x1 week -Likely due to to #1 -Supportive care History of gout -Uric acid normal -Continue colchicine HTN -Monitor BP -Resume home hypertensive meds, when appropriate DM2 -POC BG monitoring -SSI coverage prn -HgbA1C pending Leukocytosis -Likely leukemoid reaction Anemia -Hemoglobin on admission 8.1 -no s/s of active bleeding -Continue to monitor hemoglobin -Transfuse as needed Debility -Uses wheelchair at baseline -PT OT eval pending History of PE -Noted DVT and GI PPX -On Heparin and Pepcid History Interval history: No new issues overnight Hospitalist Physical - Constitutional Vitals: Temp Pulse Resp BP Pulse Ox 99.1 F 74 25 H 128/62 100 07/03/21 20:55 07/04/21 06:00 07/04/21 06:00 07/04/21 06:00 07/04/21 06:00 General appearance: Present: no acute distress, well-nourished - EENT Eyes: Present: PERRL, EOM intact ENT: hearing intact, clear oral mucosa, dentition normal - Neck Neck: Present: supple, normal ROM - Respiratory Respiratory effort: normal Respiratory: bilateral: CTA - Cardiovascular Rhythm: regular Heart Sounds: Present: S1 & S2. Absent: gallop, rub - Extremities Extremities: no ischemia, No edema, Full ROM - Abdominal General gastrointestinal: soft, non-tender, non-distended, normal bowel sounds - Integumentary Integumentary: Present: clear, warm, dry - Neurologic Neurologic: CNII-XII intact, moves all extremities Results - Labs CBC & Chem 7: 07/03/21 21:45 07/03/21 21:45 Labs: Laboratory Last Values WBC 12.3 K/mm3 (4.5-11.0) H 07/03/21 21:45 RBC 2.83 M/mm3 (3.65-5.03) L 07/03/21 21:45 Hgb 8.1 gm/dl (10.1-14.3) L 07/03/21 21:45 Hct 25.7 % (30.3-42.9) L 07/03/21 21:45 MCV 91 fl (79-97) 07/03/21 21:45 MCH 29 pg (28-32) 07/03/21 21:45 MCHC 31 % (30-34) 07/03/21 21:45 RDW 17.7 % (13.2-15.2) H 07/03/21 21:45 Plt Count 287 K/mm3 (140-440) 07/03/21 21:45 Lymph % (Auto) 6.9 % (13.4-35.0) L 07/03/21 21:45 Stewart % (Auto) 7.7 % (0.0-7.3) H 07/03/21 21:45 Eos % (Auto) 0.4 % (0.0-4.3) 07/03/21 21:45 Baso % (Auto) 0.1 % (0.0-1.8) 07/03/21 21:45 Lymph # (Auto) 0.9 K/mm3 (1.2-5.4) L 07/03/21 21:45 Stewart # (Auto) 0.9 K/mm3 (0.0-0.8) H 07/03/21 21:45 Eos # (Auto) 0.1 K/mm3 (0.0-0.4) 07/03/21 21:45 Baso # (Auto) 0.0 K/mm3 (0.0-0.1) 07/03/21 21:45 Seg Neutrophils % 84.9 % (40.0-70.0) H 07/03/21 21:45 Seg Neutrophils # 10.4 K/mm3 (1.8-7.7) H 07/03/21 21:45 PT 12.8 Sec. (12.2-14.9) 07/03/21 23:16 INR 0.90 (0.87-1.13) 07/03/21 23:16 APTT 22.4 Sec. (24.2-36.6) L 07/03/21 23:16 Heparin Anti-Xa Level 0.28 U.I./ml (0.3-0.7) L 07/04/21 07:53 Sodium 138 mmol/L (137-145) 07/03/21 21:45 Potassium 4.2 mmol/L (3.6-5.0) 07/03/21 21:45 Chloride 103.0 mmol/L (98-107) 07/03/21 21:45 Carbon Dioxide 21 mmol/L (22-30) L 07/03/21 21:45 Anion Gap 18 mmol/L 07/03/21 21:45 BUN 20 mg/dL (7-17) H 07/03/21 21:45 Creatinine 1.4 mg/dL (0.6-1.2) H 07/03/21 21:45 Estimated GFR 44 ml/min 07/03/21 21:45 BUN/Creatinine Ratio 14 % 07/03/21 21:45 Glucose 176 mg/dL (65-100) H 07/03/21 21:45 POC Glucose 133 mg/dL (70-105) H 07/04/21 09:10 Hemoglobin A1c 6.4 % (4-6) H 07/03/21 21:45 Uric Acid 7.4 mg/dL (3.5-7.6) 07/03/21 21:45 Calcium 9.0 mg/dL (8.4-10.2) 07/03/21 21:45 Active Medications - Current Medications Current Medications: Generic Name Dose Route Start Last Admin Trade Name Freq PRN Reason Stop Dose Admin Acetaminophen 650 mg 07/04/21 01:00 Acetaminophen 325 Mg Tab PO Q4H PRN Pain MILD(1-3)/Fever >100.5/CHAPMAN Albuterol 2.5 mg 07/04/21 01:00 Albuterol 2.5 Mg/3 Ml Nebu IH Q4HRT PRN Shortness Of Breath Amlodipine Besylate 5 mg 07/04/21 10:00 Amlodipine 5 Mg Tab PO DAILY ALISIA Carvedilol 25 mg 07/04/21 10:00 Carvedilol 25 Mg Tab PO BID ALISIA Colchicine 0.6 mg 07/04/21 10:00 Colchicine 0.6 Mg Tab PO QDAY ALISIA Dextrose 50 ml 07/04/21 01:00 Dextrose 50% In Water (25gm) 50 Ml Syringe IV Q30MIN PRN Hypoglycemia Protocol Docusate Sodium 100 mg 07/04/21 10:00 Docusate Sodium 100 Mg Cap PO BID [facility] Famotidine 10 mg 07/04/21 10:00 Famotidine 10 Mg Tab PO BID [facility] Heparin Sodium (Porcine) 3,300 unit 07/04/21 09:54 Heparin 10,000 Units/10 Ml Vial 40 unit/kg (3300 unit) IV Q6H PRN Anti-Xa Assay < 0.1 units/ml Hydralazine HCl 25 mg 07/04/21 06:00 07/04/21 05:41 Hydralazine 25 Mg Tab PO Not Given Q8HR [facility] Heparin Sodium/Sodium Chloride 25,000 unit in 500 mls @ 24 mls/hr 07/04/21 02:00 07/04/21 01:41 Heparin/ 0.45% Nacl-25,000 Unit/500 Ml IV 1,200 units/hr TITR [facility] 24 mls/hr Administration Protocol 1,200 UNITS/HR Insulin Human Regular 0 units 07/04/21 07:30 Insulin Regular, Human 100 Units/1 Ml SUB-Q ACHS [facility] Protocol Naloxone HCl 0.1 mg 07/04/21 01:00 Naloxone 0.4 Mg/1 Ml Inj IV Q2MIN PRN Res Rate </= 8 or 02 SAT < 92% Ondansetron HCl 4 mg 07/04/21 01:00 Ondansetron 4 Mg/2 Ml Inj IV Q6H PRN Nausea And Vomiting Oxycodone/Acetaminophen 1 tab 07/04/21 01:00 Oxycodone /Acetaminophen 5-325mg Tab PO Q6H PRN Pain, Moderate (4-6) Sodium Chloride 10 ml 07/04/21 10:00 Sodium Chloride 0.9% 10 Ml Flush Syringe IV BID [facility] Sodium Chloride 10 ml 07/04/21 01:00 Sodium Chloride 0.9% 10 Ml Flush Syringe IV PRN PRN LINE FLUSH
[2021-07-04] MEDS: INSULIN REGULAR, HUMAN 100 UNITS/1 ML SUB-Q SCH ×4 (11:51→22:15)
[2021-07-04] MEDS: amLODIPine 5 MG TAB PO SCH (12:36)
[2021-07-04] MEDS: carvediloL 25 MG TAB PO SCH ×2 (12:42→22:15)
[2021-07-04] MEDS: DOCUSATE SODIUM 100 MG CAP PO SCH ×2 (12:42→22:15)
[2021-07-04] MEDS: FAMOTIDINE 10 MG TAB PO SCH ×2 (12:43→22:15)
[2021-07-04] MEDS: COLCHICINE 0.6 MG TAB PO SCH (13:00)
--- NOTE | 2021-07-04 14:53 | Consultation ---
History of Present Illness - Reason for Consult Consult date: 07/04/21 Left Lower Extremity DVT Requesting physician: PRINCESS HERNANDEZ - History of Present Illness The patient is a 76-year-old female who was brought to the emergency department secondary to bilateral lower extremity pain. Per the patient she has been experiencing pain in bilateral legs for several months. She states the pain is mostly in her knees. Although the record reflects that the pain is worse in her left than her right today the patient states that the pain has been more severe in her right than her left leg. The patient has been nonambulatory for an unknown amount of time however she states it has been years since she has ambulated. She is unable to provide a reason as to why she has not ambulated. She recently had surgery on her left foot that she states was approximately 2 weeks ago to debride a wound on her left heel. She had a venous duplex of her lower extremities performed upon arrival which demonstrated a DVT involving the left common femoral, superficial femoral, and popliteal veins. The thrombus is nonocclusive and appears to be subacute. She is unsure of a previous history of DVT however she does believe that she had a pulmonary embolism in the past aroun d the time of a previous surgery. She has no additional complaints at this time. Past History Past Medical History: cancer, diabetes, hypertension, pulmonary embolism, other (Gout, arthritis) Past Surgical History: Other (Left foot infection s/p left foot surgery ) Social history: lives with family (Daughter), full code. denies: smoking, alcohol abuse, prescription drug abuse, IV drug use Family history: hypertension Medications and Allergies Allergies Allergy/AdvReac Type Severity Reaction Status Date / Time insulin lispro Allergy Unknown Verified 05/07/21 12:39 [From Humalog U-100 Insulin] Home Medications Medication Instructions Recorded Confirmed Last Taken Type Famotidine [Pepcid] 20 mg PO BID #60 tablet 05/12/21 Unknown Rx HYDROcodone/APAP 10-325 [[place] 1 each PO BID PRN #10 tablet 05/12/21 Unknown Rx 10/325] Triamterene/Hydrochlorothiazid 1 each PO DAILY #30 capsule 05/12/21 Unknown Rx [Triamterene-Hctz 37.5-25 mg Cp] amLODIPine 5 mg PO DAILY #30 tab 05/12/21 Unknown Rx carvediloL [Coreg] 25 mg PO BID #60 tablet 05/12/21 Unknown Rx dexAMETHasone [Decadron] 4 mg PO DAILY #14 tablet 05/12/21 Unknown Rx hydrALAZINE [Apresoline TAB] 25 mg PO Q8HR #90 tab 05/12/21 Unknown Rx Active Meds: Active Medications Acetaminophen (Acetaminophen 325 Mg Tab) 650 mg PO Q4H PRN PRN Reason: Pain MILD(1-3)/Fever >100.5/CHAPMAN Albuterol (Albuterol 2.5 Mg/3 Ml Nebu) 2.5 mg IH Q4HRT PRN PRN Reason: Shortness Of Breath Amlodipine Besylate (Amlodipine 5 Mg Tab) 5 mg PO DAILY [facility] Last Admin: 07/04/21 12:36 Dose: 5 mg Documented by: Carvedilol (Carvedilol 25 Mg Tab) 25 mg PO BID [facility] Last Admin: 07/04/21 12:42 Dose: 25 mg Documented by: Colchicine (Colchicine 0.6 Mg Tab) 0.6 mg PO QDAY [facility] Last Admin: 07/04/21 13:00 Dose: 0.6 mg Documented by: Dextrose (Dextrose 50% In Water (25gm) 50 Ml Syringe) 50 ml IV Q30MIN PRN; Protocol PRN Reason: Hypoglycemia Docusate Sodium (Docusate Sodium 100 Mg Cap) 100 mg PO BID [facility] Last Admin: 07/04/21 12:42 Dose: 100 mg Documented by: Famotidine (Famotidine 10 Mg Tab) 10 mg PO BID [facility] Last Admin: 07/04/21 12:43 Dose: 10 mg Documented by: Heparin Sodium (Porcine) (Heparin 10,000 Units/10 Ml Vial) 3,300 unit 40 unit/kg (3300 unit) IV Q6H PRN PRN Reason: Anti-Xa Assay < 0.1 units/ml Hydralazine HCl (Hydralazine 25 Mg Tab) 25 mg PO Q8HR [facility] Last Admin: 07/04/21 05:41 Dose: Not Given Documented by: Heparin Sodium/Sodium Chloride (Heparin/ 0.45% Nacl-25,000 Unit/500 Ml) 25,000 unit in 500 mls @ 24 mls/hr IV TITR [facility]; Protocol Last Admin: 07/04/21 01:41 Dose: 1,200 units/hr, 24 mls/hr Documented by: Insulin Human Regular (Insulin Regular, Human 100 Units/1 Ml) 0 units SUB-Q ACHS [facility]; Protocol Last Admin: 07/04/21 12:03 Dose: Not Given Documented by: Naloxone HCl (Naloxone 0.4 Mg/1 Ml Inj) 0.1 mg IV Q2MIN PRN PRN Reason: Res Rate </= 8 or 02 SAT < 92% Ondansetron HCl (Ondansetron 4 Mg/2 Ml Inj) 4 mg IV Q6H PRN PRN Reason: Nausea And Vomiting Oxycodone/Acetaminophen (Oxycodone /Acetaminophen 5-325mg Tab) 1 tab PO Q6H PRN PRN Reason: Pain, Moderate (4-6) Sodium Chloride (Sodium Chloride 0.9% 10 Ml Flush Syringe) 10 ml IV BID [facility] Last Admin: 07/04/21 12:03 Dose: 10 ml Documented by: Sodium Chloride (Sodium Chloride 0.9% 10 Ml Flush Syringe) 10 ml IV PRN PRN PRN Reason: LINE FLUSH Review of Systems All systems: negative Exam - Constitutional Vitals: Temp Pulse Resp BP Pulse Ox 99.1 F 90 25 H 154/98 98 07/03/21 20:55 07/04/21 12:36 07/04/21 12:00 07/04/21 12:36 07/04/21 12:00 General appearance: Present: no acute distress - Respiratory Respiratory effort: normal - Cardiovascular Rhythm: regular - Extremities Extremities: pulses intact (Palpable pedal pulses bilaterally) Extremity abnormal: edema (Moderate edema of bilateral lower extremity), other (Ulceration of left heel with granulation tissue) - Abdominal General gastrointestinal: Present: soft, non-tender, non-distended Results - Labs CBC & Chem 7: 07/03/21 21:45 07/03/21 21:45 Labs: Abnormal lab results 07/03/21 07/03/21 07/03/21 Range/Units 21:45 21:45 21:45 WBC 12.3 H (4.5-11.0) K/mm3 RBC 2.83 L (3.65-5.03) M/mm3 Hgb 8.1 L (10.1-14.3) gm/dl Hct 25.7 L (30.3-42.9) % RDW 17.7 H (13.2-15.2) % Lymph % (Auto) 6.9 L (13.4-35.0) % [place] % (Auto) 7.7 H (0.0-7.3) % Lymph # (Auto) 0.9 L (1.2-5.4) K/mm3 [place] # (Auto) 0.9 H (0.0-0.8) K/mm3 Seg Neutrophils % 84.9 H (40.0-70.0) % Seg Neutrophils # 10.4 H (1.8-7.7) K/mm3 APTT (24.2-36.6) Sec. Heparin Anti-Xa Level (0.3-0.7) U.I./ml Carbon Dioxide 21 L (22-30) mmol/L BUN 20 H (7-17) mg/dL Creatinine 1.4 H (0.6-1.2) mg/dL Glucose 176 H (65-100) mg/dL POC Glucose (70-105) mg/dL Hemoglobin A1c 6.4 H (4-6) % 07/03/21 07/04/21 07/04/21 Range/Units 23:16 07:53 09:10 WBC (4.5-11.0) K/mm3 RBC (3.65-5.03) M/mm3 Hgb (10.1-14.3) gm/dl Hct (30.3-42.9) % RDW (13.2-15.2) % Lymph % (Auto) (13.4-35.0) % [place] % (Auto) (0.0-7.3) % Lymph # (Auto) (1.2-5.4) K/mm3 [place] # (Auto) (0.0-0.8) K/mm3 Seg Neutrophils % (40.0-70.0) % Seg Neutrophils # (1.8-7.7) K/mm3 APTT 22.4 L (24.2-36.6) Sec. Heparin Anti-Xa Level 0.28 L (0.3-0.7) U.I./ml Carbon Dioxide (22-30) mmol/L BUN (7-17) mg/dL Creatinine (0.6-1.2) mg/dL Glucose (65-100) mg/dL POC Glucose 133 H (70-105) mg/dL Hemoglobin A1c (4-6) % 09/29/21 Range/Units 11:56 WBC (4.5-11.0) K/mm3 RBC (3.65-5.03) M/mm3 Hgb (10.1-14.3) gm/dl Hct (30.3-42.9) % RDW (13.2-15.2) % Lymph % (Auto) (13.4-35.0) % [place] % (Auto) (0.0-7.3) % Lymph # (Auto) (1.2-5.4) K/mm3 [place] # (Auto) (0.0-0.8) K/mm3 Seg Neutrophils % (40.0-70.0) % Seg Neutrophils # (1.8-7.7) K/mm3 APTT (24.2-36.6) Sec. Heparin Anti-Xa Level (0.3-0.7) U.I./ml Carbon Dioxide (22-30) mmol/L BUN (7-17) mg/dL Creatinine (0.6-1.2) mg/dL Glucose (65-100) mg/dL POC Glucose 158 H (70-105) mg/dL Hemoglobin A1c (4-6) % - Imaging and Cardiology Venous US: image reviewed Assessment and Plan The patient is a 76-year-old nonambulatory female with a nonocclusive left lower extremity DVT. The patient has been nonambulatory for years and given her age it is unlikely that she will ever ambulate again. The appearance of her DVT on ultrasound appears subacute and again is nonocclusive so I would not recommend a thrombectomy especially given the risk for patient who does not ambulate. I will recommend converting her to oral anticoagulation with Eliquis 5 mg p.o. twice daily for minimum of 3 months. Given that she does not ambulate and is at increased risk of an additional DVT and a potential PE will recommend continuing anticoagulation for life however she can likely be converted to Eliquis 2.5 mg p.o. twice daily to prevent further DVTs.
[2021-07-04 16:11] LABS: Hematocrit 21.2 % (30.3-42.9); Hemoglobin 6.8 gm/dl (10.1-14.3); Mean Corpuscular HGB Conc 32 % (30-34); Mean Corpuscular Volume 90 fl (79-97); Platelet Count 275 K/mm3 (140-440); Red Blood Count 2.36 M/mm3 (3.65-5.03); Red Cell Distribution Width 17.3 % (13.2-15.2)
[2021-07-04 16:20] LABS: INR 1.06 (0.87-1.13)
[2021-07-04 17:05] LABS: Partial Thromboplastin Time 178.6 Sec. (24.2-36.6)
[2021-07-04] MEDS ORDERED: SODIUM CHLORIDE 0.9% 500 ML 500 ML IV SCH (19:40)
[2021-07-04] MEDS: APIXABAN 5 MG TAB PO SCH (22:15)
[2021-07-05] MEDS: hydrALAZINE 25 MG TAB PO SCH ×2 (06:59→13:19)
--- NOTE | 2021-07-05 08:46 | Discharge Summary ---
Providers - Providers Date of Admission: 07/03/21 23:58 Date of discharge: 07/05/21 Attending physician: PRINCESS HERNANDEZ 07/04/21 01:38 Physical Therapy Evaluation and Treat [CONS] Routine Comment: Reason For Exam: Eval, history of debility 07/04/21 01:39 Occupational Therapy Evaluate and Treat [CONS] Routine Comment: Reason For Exam: Eval, history of debility 07/04/21 07:36 Consult to Physician [CONS] Routine Comment: Consulting Provider: MELVINA GARDNER Physician Instructions: Reason For Exam: DVT Hospitalization Reason for admission: DVT Condition: Fair Hospital course: The patient is a 76-year-old female who was brought to the emergency department secondary to bilateral lower extremity pain. Per the patient she has been experiencing pain in bilateral legs for several months. She states the pain is mostly in her knees. Although the record reflects that the pain is worse in her left than her right today the patient states that the pain has been more severe in her right than her left leg. The patient has been nonambulatory for an unknown amount of time however she states it has been years since she has am bulated. She is unable to provide a reason as to why she has not ambulated. She recently had surgery on her left foot that she states was approximately 2 weeks ago to debride a wound on her left heel. She had a venous duplex of her lower extremities performed upon arrival which demonstrated a DVT involving the left common femoral, superficial femoral, and popliteal veins. The thrombus is nonocclusive and appears to be subacute. The patient was admitted with diagnosis of left lower extremity DVT. She is unsure of a previous history of DVT however she does believe that she had a pulmonary embolism in the past around the time of a previous surgery. The patient was initially treated with IV heparin. Vascular surgery saw the patient in consultation and reported The patient has been nonambulatory for years and given her age it is unlikely that she will ever ambulate again. The appearance of her DVT on ultrasound appears subacute and again is nonocclusive so vascular would not recommend a thrombectomy especially given the risk for patient who does not ambulate. Dr. Gardner recommended converting her to oral anticoagulation with Eliquis 5 mg p.o. twice daily for minimum of 3 months. Given that she does not ambulate and is at increased risk of an additional DVT and a potential PE the recommendation was to continue anticoagulation for life however she can likely be converted to Eliquis 2.5 mg p.o. twice daily to prevent further DVTs. Patient is to follow- up with vascular surgery. Dedicated discharge time 35 minutes Disposition: 01 HOME / SELF CARE / HOMELESS Final Discharge Diagnosis (Prints w/discharge instructions): Left lower extremity subacute DVT, nonambulatory/bedbound Core Measure Documentation - Palliative Care Palliative Care/ Comfort Measures: Not Applicable - Core Measures Any of the following diagnoses?: none Exam - Constitutional Vitals: Temp Pulse Resp BP Pulse Ox 98.5 F 73 20 145/63 98 07/05/21 07:58 07/05/21 07:58 07/05/21 07:58 07/05/21 07:58 07/05/21 07:58 General appearance: Present: no acute distress, well-nourished - EENT Eyes: Present: PERRL ENT: hearing intact, clear oral mucosa - Neck Neck: Present: supple, normal ROM - Respiratory Respiratory effort: normal Respiratory: bilateral: CTA - Cardiovascular Heart Sounds: Present: S1 & S2. Absent: rub, click - Extremities Extremities: pulses symmetrical, No edema Peripheral Pulses: within normal limits - Abdominal General gastrointestinal: Present: soft, non-tender, non-distended, normal bowel sounds Female genitourinary: Present: normal - Integumentary Integumentary: Present: clear, warm, dry - Musculoskeletal Musculoskeletal: gait normal, strength equal bilaterally - Psychiatric Psychiatric: appropriate mood/affect, intact judgment & insight - Neurologic Neurologic: CNII-XII intact, moves all extremities Plan Activity: advance as tolerated Weight Bearing Status: Non-Weight Bearing Diet: regular Follow up with: [employer] [Other] - 3-5 Days MELVINA GARDNER MD [Staff Physician] - 7 Days Prescriptions: Apixaban [Eliquis] 2.5 mg PO BID #60 tablet Apixaban [Eliquis] 5 mg PO Q12HR 90 Days #180 tablet oxyCODONE /ACETAMINOPHEN [Percocet 5/325 mg] 1 tab PO Q6H PRN #10 tablet PRN Reason: Pain, Moderate (4-6)
[2021-07-05] MEDS: INSULIN REGULAR, HUMAN 100 UNITS/1 ML SUB-Q SCH ×3 (08:55→16:57)
[2021-07-05] MEDS: APIXABAN 5 MG TAB PO SCH (09:26)
[2021-07-05] MEDS: FAMOTIDINE 10 MG TAB PO SCH (09:27)
[2021-07-05] MEDS: DOCUSATE SODIUM 100 MG CAP PO SCH (09:27)
[2021-07-05] MEDS: amLODIPine 5 MG TAB PO SCH (09:27)
[2021-07-05] MEDS: carvediloL 25 MG TAB PO SCH (09:28)
[2021-07-05] MEDS: COLCHICINE 0.6 MG TAB PO SCH (09:31)
[2021-07-05] MEDS ORDERED: FERROUS SULFATE 325 MG TAB PO SCH (10:00)
[2021-07-05] MEDS ORDERED: MULTIVITAMINS ,THERAPEUTIC TAB PO SCH (10:00)
[2021-07-05 16:12] VITALS: BP 114/48
[2021-07-07] MEDS ORDERED: COLCHICINE 0.6 MG TAB PO SCH (10:00)
== END 2021-07-05 18:45 | disposition home health service (06) | DRG 299 ==
LOC: ED 19:10 → 4A 23:22 → OBSVTOIN 23:58 → 4A 07-04 15:12
PROVIDERS: ADMIT Internal Medicine Geriatric Medicine; ATTEND Hospitalist
DX: I82.412 Acute embolism and thrombosis of left femoral vein (principal); N17.0 Acute kidney failure with tubular necrosis; E11.9 Type 2 diabetes mellitus without complications; I82.432 Acute embolism and thrombosis of left popliteal vein; D64.9 Anemia, unspecified; M19.90 Unspecified osteoarthritis, unspecified site; J45.909 Unspecified asthma, uncomplicated; Z86.711 Personal history of pulmonary embolism; Z85.038 Personal history of other malignant neoplasm of large intestine; M25.562 Pain in left knee; M25.561 Pain in right knee; I10 Essential (primary) hypertension; Z82.49 Family history of ischemic heart disease and other diseases of the circulatory system; R53.81 Other malaise; Z88.8 Allergy status to other drugs, medicaments and biological substances; Z74.01 Bed confinement status
CPT/HCPCS: 36415; 80048; 82565; 82962; 83036; 84550; 85025; 85027; 85520; 85610; 85730; 86850; 86900; 86901; 86920; 93970; G0378; J1644; J1815; J1885; J2405; J3010

== ENCOUNTER 2021-08-17 20:41 | Emergency (ER) | payer MEDICARE ==
--- NOTE | 2021-08-17 22:58 | XRay Report ---
CHEST 1 VIEW 08/17/2021 10:33 PM INDICATION / CLINICAL INFORMATION: weakness. COMPARISON: 05/07/2021. FINDINGS: SUPPORT DEVICES: None. HEART / MEDIASTINUM: No significant abnormality. LUNGS / PLEURA: No significant pulmonary or pleural abnormality. No pneumothorax. ADDITIONAL FINDINGS: No significant additional findings. IMPRESSION: No acute abnormality. Signer Name: Benjamin Campo MD Signed: 08/17/2021 10:54 PM Workstation Name: [id number]
[2021-08-17 23:07] LABS: Basophils # (Auto) 0.1 K/mm3 (0.0-0.1); Basophils % (Auto) 0.9 % (0.0-1.8); Eosinophils % (Auto) 0.5 % (0.0-4.3); Hematocrit 26.6 % (30.3-42.9); Hemoglobin 8.2 gm/dl (10.1-14.3); Lymphocytes # (Auto) 0.7 K/mm3 (1.2-5.4); Lymphocytes % (Auto) 7.5 % (13.4-35.0); Mean Corpuscular HGB Conc 31 % (30-34); Mean Corpuscular Volume 89 fl (79-97); Monocytes # (Auto) 0.4 K/mm3 (0.0-0.8); Monocytes % (Auto) 4.5 % (0.0-7.3); Platelet Count 220 K/mm3 (140-440); Red Blood Count 2.99 M/mm3 (3.65-5.03); Red Cell Distribution Width 16.9 % (13.2-15.2)
[2021-08-17 23:10] LABS: Albumin 2.5 g/dL (3.9-5); Calcium 9.3 mg/dL (8.4-10.2)
[2021-08-18] MEDS ORDERED: traMADol 50 MG TAB PO ONE (00:25)
--- NOTE | 2021-08-18 01:17 | Emergency Department Report ---
ED General Adult HPI - General Chief complaint: Medical Clearance Stated complaint: GENERAL ILLNESS Time Seen by Provider: 08/17/21 22:24 Source: EMS Mode of arrival: Stretcher Limitations: No Limitations - History of Present Illness Initial comments: Patient presents to the emergency department via EMS for evaluation of decreased appetite and continued weakness. Patient states she has no complaints and denies any chest pain, shortness breath, or abdominal pain. -: unknown Severity scale (0 -10): 0 Consistency: now resolved Improves with: none Worsens with: none Associated Symptoms: denies other symptoms Treatments Prior to Arrival: none - Related Data Previous Rx's Medication Instructions Recorded Last Taken Type Famotidine [Pepcid] 20 mg PO BID #60 tablet 05/12/21 Unknown Rx HYDROcodone/APAP 10-325 [[place] 1 each PO BID PRN #10 tablet 05/12/21 Unknown Rx 10-325 mg TAB] Triamterene/Hydrochlorothiazid 1 each PO DAILY #30 capsule 05/12/21 Unknown Rx [Triamterene-Hctz 37.5-25 mg Cp] amLODIPine 5 mg PO DAILY #30 tab 05/12/21 Unknown Rx carvediloL [Coreg] 25 mg PO BID #60 tablet 05/12/21 Unknown Rx dexAMETHasone [Decadron] 4 mg PO DAILY #14 tablet 05/12/21 Unknown Rx hydrALAZINE [Apresoline TAB] 25 mg PO Q8HR #90 tab 05/12/21 Unknown Rx Apixaban [Eliquis] 2.5 mg PO BID #60 tablet 07/05/21 Unknown Rx Apixaban [Eliquis] 5 mg PO Q12HR 90 Days #180 tablet 07/05/21 Unknown Rx Colchicine [Colcrys] 0.6 mg PO QDAY tablet 07/05/21 Unknown Rx Ferrous Sulfate [Feosol 325 MG tab] 325 mg PO QDAY tablet 07/05/21 Unknown Rx oxyCODONE /ACETAMINOPHEN [Percocet 1 tab PO Q6H PRN #10 tablet 07/05/21 Unknown Rx 5/325 mg] traMADoL [Ultram] 50 mg PO Q6HR PRN #24 tablet 08/18/21 Unknown Rx Allergies Allergy/AdvReac Type Severity Reaction Status Date / Time insulin lispro Allergy Unknown Verified 08/17/21 21:35 [From Humalog U-100 Insulin] ED Review of Systems ROS: Stated complaint: GENERAL ILLNESS Other details as noted in HPI Comment: All other systems reviewed and negative Constitutional: denies: chills, fever Eyes: denies: eye pain, eye discharge, vision change ENT: denies: ear pain, throat pain Respiratory: denies: cough, shortness of breath, wheezing Cardiovascular: denies: chest pain, palpitations Endocrine: no symptoms reported Gastrointestinal: denies: abdominal pain, nausea, diarrhea Genitourinary: denies: urgency, dysuria, discharge Musculoskeletal: denies: back pain, joint swelling, arthralgia Skin: denies: rash, lesions Neurological: denies: headache, weakness, paresthesias Psychiatric: denies: anxiety, depression Hematological/Lymphatic: denies: easy bleeding, easy bruising ED Past Medical Hx - Past Medical History Hx Hypertension: Yes Hx Congestive Heart Failure: No Hx Diabetes: Yes Hx Pulmonary Embolism: Yes Hx Renal Disease: Yes (ESRD) Hx Arthritis: Yes (Gout) Hx Asthma: Yes Hx COPD: No Additional medical history: Colon CA - Surgical History Additional Surgical History: Left foot infection surgery - Social History Smoking Status: Never Smoker - Medications Home Medications: Home Medications Medication Instructions Recorded Confirmed Last Taken Type Famotidine [Pepcid] 20 mg PO BID #60 tablet 05/12/21 Unknown Rx HYDROcodone/APAP 10-325 [[place] 1 each PO BID PRN #10 tablet 05/12/21 Unknown Rx 10-325 mg TAB] Triamterene/Hydrochlorothiazid 1 each PO DAILY #30 capsule 05/12/21 Unknown Rx [Triamterene-Hctz 37.5-25 mg Cp] amLODIPine 5 mg PO DAILY #30 tab 05/12/21 Unknown Rx carvediloL [Coreg] 25 mg PO BID #60 tablet 05/12/21 Unknown Rx dexAMETHasone [Decadron] 4 mg PO DAILY #14 tablet 05/12/21 Unknown Rx hydrALAZINE [Apresoline TAB] 25 mg PO Q8HR #90 tab 05/12/21 Unknown Rx Apixaban [Eliquis] 2.5 mg PO BID #60 tablet 07/05/21 Unknown Rx Apixaban [Eliquis] 5 mg PO Q12HR 90 Days #180 tablet 07/05/21 Unknown Rx Colchicine [Colcrys] 0.6 mg PO QDAY tablet 07/05/21 Unknown Rx Ferrous Sulfate [Feosol 325 MG tab] 325 mg PO QDAY tablet 07/05/21 Unknown Rx oxyCODONE /ACETAMINOPHEN [Percocet 1 tab PO Q6H PRN #10 tablet 07/05/21 Unknown Rx 5/325 mg] traMADoL [Ultram] 50 mg PO Q6HR PRN #24 tablet 08/18/21 Unknown Rx ED Physical Exam - General Limitations: No Limitations General appearance: alert, in no apparent distress - Head Head exam: Present: atraumatic, normocephalic - Eye Eye exam: Present: normal appearance, PERRL, EOMI - ENT ENT exam: Present: mucous membranes moist - Neck Neck exam: Present: normal inspection - Respiratory Respiratory exam: Present: normal lung sounds bilaterally. Absent: respiratory distress - Cardiovascular Cardiovascular Exam: Present: regular rate, normal rhythm. Absent: systolic murmur, diastolic murmur, rubs, gallop - GI/Abdominal GI/Abdominal exam: Present: soft, normal bowel sounds. Absent: distended, tenderness - Extremities Exam Extremities exam: Present: normal inspection - Back Exam Back exam: Present: normal inspection - Neurological Exam Neurological exam: Present: alert, oriented X3, CN II-XII intact. Absent: motor sensory deficit - Psychiatric Psychiatric exam: Present: normal affect, normal mood - Skin Skin exam: Present: warm, dry, intact, normal color. Absent: rash ED Course Vital Signs 08/17/21 08/17/21 21:33 22:17 Temperature 97.7 F Pulse Rate 87 Respiratory 16 Rate Blood Pressure 186/97 [Left] O2 Sat by Pulse 100 100 Oximetry ED Medical Decision Making - Lab Data Result diagrams: 08/17/21 22:11 08/17/21 22:11 Lab Results 08/17/21 08/17/21 Range/Units 22:11 22:11 WBC 8.7 (4.5-11.0) K/mm3 RBC 2.99 L (3.65-5.03) M/mm3 Hgb 8.2 L (10.1-14.3) gm/dl Hct 26.6 L (30.3-42.9) % MCV 89 (79-97) fl MCH 27 L (28-32) pg MCHC 31 (30-34) % RDW 16.9 H (13.2-15.2) % Plt Count 220 (140-440) K/mm3 Lymph % (Auto) 7.5 L (13.4-35.0) % [place] % (Auto) 4.5 (0.0-7.3) % Eos % (Auto) 0.5 (0.0-4.3) % Baso % (Auto) 0.9 (0.0-1.8) % Lymph # (Auto) 0.7 L (1.2-5.4) K/mm3 [place] # (Auto) 0.4 (0.0-0.8) K/mm3 Eos # (Auto) 0.0 (0.0-0.4) K/mm3 Baso # (Auto) 0.1 (0.0-0.1) K/mm3 Seg Neutrophils % 86.6 H (40.0-70.0) % Seg Neutrophils # 7.6 (1.8-7.7) K/mm3 Sodium 143 (137-145) mmol/L Potassium 3.0 L (3.6-5.0) mmol/L Chloride 106.1 (98-107) mmol/L Carbon Dioxide 22 (22-30) mmol/L Anion Gap 18 mmol/L BUN 17 (7-17) mg/dL Creatinine 1.3 H (0.6-1.2) mg/dL Estimated GFR 48 ml/min BUN/Creatinine Ratio 13 % Glucose 134 H (65-100) mg/dL Calcium 9.3 (8.4-10.2) mg/dL Total Bilirubin 0.20 (0.1-1.2) mg/dL AST 14 (5-40) units/L ALT 6 L (7-56) units/L Alkaline Phosphatase 58 (35-129) units/L Total Protein 6.8 (6.3-8.2) g/dL Albumin 2.5 L (3.9-5) g/dL Albumin/Globulin Ratio 0.6 % - EKG Data -: EKG Interpreted by Me EKG shows normal: sinus rhythm - EKG Data Interpretation: LVH - Radiology Data Radiology results: report reviewed - Medical Decision Making Spoke to the patient's daughter Ms. Balbuena at approximately 12:13 AM She states her mother was recently admitted to [facility] and was diagnosed with encephalopathy secondary to elevated blood pressures. She states her biggest concern with her mother is her continue arthritic pain of her knees states that she is able to get some help with that she will be able to do everything else for her mother medically from an outpatient standpoint. I did discuss admission possibilities with the patient's daughter but she politely declined The daughter states her mother was initially on 17 medications when she got her 3 months ago and now she has her down to less than 5 medications. Critical care attestation.: If time is entered above; I have spent that time in minutes in the direct care of this critically ill patient, excluding procedure time. ED Disposition Clinical Impression: Weakness Disposition: 01 HOME / SELF CARE / HOMELESS Is pt being admited?: No Does the pt Need Aspirin: No Condition: Stable Additional Instructions: return if worse Referrals: МАРИНА GARDNER MD [Primary Care Provider] - 3-5 Days MELVINA CRAMER MD [Staff Physician] - 3-5 Days TE DAMON MD [Staff Physician] - 3-5 Days Time of Disposition: 01:27
[2021-08-18 12:33] VITALS: BP 210/82
--- NOTE | 2021-08-21 10:48 | Electrocardiograph Report ---
[facility] Test Date: 2021-08-17 Test Time: 22:53:18 Pat Name: JUAN MANUEL CHUNG Department: Room: Gender: F Lpn Rn: juan : 1945 Requested By: WALTER RENEE Order Number: [id number] Reading MD: Joby Sanchez Measurements Intervals Erhard Rate: 81 P: 43 MA: 163 QRS: 12 QRSD: 88 T: 177 QT: 396 QTc: 459 Interpretive Statements Sinus rhythm LVH with secondary repolarization abnormality Compared to ECG 05/08/2021 08:05:15 No significant change Electronically Signed On 08-21-2021 10:48:07 EST by Joby Sanchez
== END 2021-08-18 12:33 | disposition home or self-care (01) ==
LOC: ED 20:41
DX: R53.1 Weakness (principal); J45.909 Unspecified asthma, uncomplicated; I10 Essential (primary) hypertension; E11.8 Type 2 diabetes mellitus with unspecified complications; Z88.8 Allergy status to other drugs, medicaments and biological substances
CPT/HCPCS: 36415; 71045; 80053; 85025; 93005; 99284